=== PATIENT | male | born 1970 | race Caucasian/White ===

== ENCOUNTER 2016-12-28 13:25 | Emergency (ER) | payer BC, MEDICARE ==
[2016-12-28 13:37] VITALS: BP 113/65; PULSE 94; RESP 20; TEMP 99
--- NOTE | 2016-12-28 14:01 | ED ---
Extremity Problem HPI - General Chief complaint: Extremity Problem,Nontraumatic Stated complaint: Shoulder Pain Time Seen by Provider: 12/28/16 13:38 Source: patient Mode of arrival: ambulatory Limitations: no limitations - History of Present Illness Initial comments: 46-year-old right-handed male patient presents to emergency department today for complaints of left shoulder pain. Patient states that he woke this morning was unable to move his left arm without significant pain to her shoulder. Patient states that 2 days ago he did have a fall, but denies any injury from the fall. He states yesterday he did carry a heavy air conditioner. Patient denies any head, neck, or back pain. Patient denies any numbness or tingling to the arm. Patient denies any fever, chills, chest pain, back pain, shortness of breath, abdominal pain, nausea, vomiting, dizziness, or weakness. Patient denies any previous injury to the shoulder. - Related Data Home Medications Medication Instructions Recorded Confirmed Morphine Sulfate [Morphine Sulfate 200 mg PO QID PRN 10/22/14 10/24/14 ER] Omeprazole [PriLOSEC] 40 mg PO AC-BID 10/22/14 10/24/14 Simvastatin [Zocor] 40 mg PO HS 10/22/14 10/24/14 traZODone HCL [Desyrel] 400 mg PO HS 10/22/14 10/24/14 Albuterol Inhaler [Ventolin Hfa 1 - 2 puff INHALATION Q6HR PRN 10/24/14 10/24/14 Inhaler] Warfarin [Coumadin] 7.5 mg PO ONCE 10/24/14 10/24/14 Previous Rx's Medication Instructions Recorded Aspirin 325 mg PO BID 30 Days 10/27/14 Diazepam [Valium] 5 mg PO Q8H PRN #30 tab 10/27/14 Morphine Sulfate [Morphine Sulfate 200 mg PO QID PRN #10 tablet.er 10/27/14 ER] Sennosides-Docusate Sodium 2 each PO DAILY #30 tablet 10/27/14 [Senokot-S] Ondansetron Odt [Zofran ODT] 4 mg PO Q8HR PRN #20 tab 02/10/15 Ibuprofen [Motrin] 600 mg PO Q6HR PRN #21 tab 12/28/16 Allergies Allergy/AdvReac Type Severity Reaction Status Date / Time No Known Allergies Allergy Verified 12/28/16 13:38 Review of Systems ROS Statement: Those systems with pertinent positive or pertinent negative responses have been documented in the HPI. ROS Other: All systems not noted in ROS Statement are negative. Past Medical History Past Medical History: GERD/Reflux, Hearing Disorder / Deafness, Hyperlipidemia, Sleep Apnea/CPAP/BIPAP Additional Past Medical History / Comment(s): left femur fracture, PTSD, chronic pain History of Any Multi-Drug Resistant Organisms: None Reported Past Surgical History: Back Surgery, Orthopedic Surgery Additional Past Surgical History / Comment(s): cranial fracture, right ankle, right hand. Past Anesthesia/Blood Transfusion Reactions: No Reported Reaction Additional Past Anesthesia/Blood Transfusion Reaction / Comment(s): CLAUSTROPHIC Past Psychological History: PTSD Smoking Status: Current every day smoker Past Alcohol Use History: None Reported Past Drug Use History: None Reported - Past Family History Father Family Medical History: Cancer Mother Family Medical History: Cancer General Exam Limitations: no limitations General appearance: alert, in no apparent distress Head exam: Present: atraumatic, normocephalic, normal inspection Eye exam: Present: normal appearance, PERRL, EOMI. Absent: scleral icterus, conjunctival injection, periorbital swelling ENT exam: Present: normal exam, mucous membranes moist Neck exam: Present: normal inspection, full ROM. Absent: tenderness, meningismus, lymphadenopathy Respiratory exam: Present: normal lung sounds bilaterally. Absent: respiratory distress, wheezes, rales, rhonchi, stridor Cardiovascular Exam: Present: regular rate, normal rhythm, normal heart sounds. Absent: systolic murmur, diastolic murmur, rubs, gallop, clicks Extremities exam: Present: normal inspection, full ROM (All active range of motion present, however patient reports significant pain with both active and passive abduction, forward flexion, and hyperextension, as well as external rotation of the shoulder.), normal capillary refill, other (Radial pulse intact , skin pink warm and dry. No deformity or crepitus noted. Left shoulder without obvious asymmetry or deformity when compared to the right shoulder. No erythema warmth or swelling. ). Absent: tenderness Back exam: Present: normal inspection Neurological exam: Present: alert, oriented X3, CN II-XII intact Expanded Motor strength exam: RUE: 5, LUE: 5 Psychiatric exam: Present: normal affect, normal mood Skin exam: Present: warm, dry, intact, normal color. Absent: rash Course Vital Signs 12/28/16 13:35 Temperature 99.0 F Pulse Rate 94 Respiratory 20 Rate Blood Pressure 113/65 O2 Sat by Pulse 98 Oximetry Medical Decision Making - Medical Decision Making 46-year-old male patient presented for evaluation of left shoulder pain. X-ray was obtained and did reveal possible calcific tendinitis in the left shoulder. No fracture or dislocation noted. Patient will be given prescription for anti- inflammatory pain medications with instructions to take one tablet 3 times daily for the next 7 days. Patient started if his symptoms don't start to improve with gentle exercises and anti-inflammatories he is to follow-up with his primary care physician for further evaluation. Patient started to return here for any new, worsening, or concerning symptoms. Patient verbalizes understanding and agrees with this plan. - Radiology Data Radiology results: report reviewed, image reviewed 3 views of the left shoulder reveals calcification as well as assessment calcific tendinitis on the rotator cuff tendon. Alignment, bone mineralization , joint spaces are maintained. Left lung apex is visualized is normal. Impression by Dr. Lee reveals no acute fracture dislocation. Findings suggest calcific tendinitis. Disposition Clinical Impression: Shoulder pain, Tendonitis Disposition: HOME SELF-CARE Condition: Good Instructions: Shoulder Pain (ED) Additional Instructions: Take ibuprofen 3 times daily, 1 tablet after breakfast, one tablet after lunch, one tablet after dinner. Gentle stretching exercises of the shoulder to improve range of motion. If symptoms aren't improving over the next 1-2 days follow-up with primary care physician for recheck. Return for any new, worsening, or concerning symptoms. Prescriptions: Ibuprofen [Motrin] 600 mg PO Q6HR PRN #21 tab PRN Reason: Pain Referrals: None,Stated [Primary Care Provider] - 1-2 days Time of Disposition: 14:18
--- NOTE | 2016-12-28 14:09 | XR ---
Left shoulder HISTORY: Trauma and pain 3 views of the left shoulder Calcification is present suggesting calcific tendinitis along the rotator cuff tendon. Alignment, bon e mineralization, joint spaces are maintained. Left lung apex as visualized is normal. IMPRESSION: No acute fracture or dislocation. Findings suggest calcific tendinitis. Consider MRI or C T for additional evaluation.
== END 2016-12-28 14:23 | disposition home or self-care (01) ==
LOC: EC 13:25
DX: M75.32 Calcific tendinitis of left shoulder (principal); K21.9 Gastro-esophageal reflux disease without esophagitis; E78.5 Hyperlipidemia, unspecified; G47.30 Sleep apnea, unspecified; F43.10 Post-traumatic stress disorder, unspecified; F17.200 Nicotine dependence, unspecified, uncomplicated; Z91.81 History of falling; Z79.01 Long term (current) use of anticoagulants; Z79.899 Other long term (current) drug therapy
CPT/HCPCS: 99283

== ENCOUNTER → 2017-05-23 | Outpatient (CLI) | payer BC, MEDICARE ==
--- NOTE | 2017-05-23 15:36 | NM ---
EXAMINATION TYPE: NM bone scan whole body DATE OF EXAM: 05/23/2017 COMPARISON: 10/24/2014 HISTORY: Pain in left hip Delayed whole-body scanning was performed following the injection of 27 mCi Tc 99m MDP. Images were acquired 3 hours post injection. Spot imaging is performed over the pelvis. FINDINGS: There is a therapeutic defect within the left hip compatible with the patient's left hip prosthesis. Suspicious uptake adjacent to left hip is not identified. There is some small focal area of increased radiotracer at the medial inferior left pubic ramus. On t he right anterior oblique view there is some mild increased uptake on the lesser trochanter of the le ft hip. These areas are not identified on the whole body imaging. Suspicious uptake around the hip prosthesis to suggest loosening or infection is not identified. Incidental note is made of uptake within the left mandible which could be related to periodontal dise ase. IMPRESSION: 1. Couple of punctate nonspecific findings at the medial left pubic ramus and left lesser trochanter on spot imaging. These are nonspecific. 2. Suspicious changes to suggest loosening or infection are not identified on the whole body bone sca n imaging.
== END | disposition home or self-care (01) ==
LOC: RADNMMAIN 11:05
PROVIDERS: ATTEND Orthopaedic Surgery
DX: R94.8 Abnormal results of function studies of other organs and systems (principal); Z96.642 Presence of left artificial hip joint
CPT/HCPCS: 78306; A9503

== ENCOUNTER → 2018-02-20 | Outpatient (CLI) | payer BC, MEDICARE ==
[2018-02-21 13:34] LABS: Alt. alternata IgE Class CLASS 0; Alternaria alternata IgE <0.35 kU/L (<0.35); Asperg. fumagatus IgE <0.35 kU/L (<0.35); Asperg. fumagatus IgE Class CLASS 0; Aureo. pullulans IgE <0.35 kU/L (<0.35); Birch(Com.Silvr) IgE <0.35 kU/L (<0.35); Birch(Com.Silvr) IgE Class CLASS 0; Candida albicans IgE Class CLASS I; Cat Epith & Dander IgE 0.36 kU/L (<0.35); Cat Epith & Dander IgE Class CLASS I; Clad herbarum IgE <0.35 kU/L (<0.35); Cockroach IgE 0.91 kU/L (<0.35); Com. Pigweed IgE <0.35 kU/L (<0.35); Com. Pigweed IgE Class CLASS 0; Cottonwood IgE <0.35 kU/L (<0.35); Dermato. Pteronyssinus IgE 0.92 kU/L (<0.35); Dermato. farinae IgE 1.04 kU/L (<0.35); Dermato. farinae IgE Class CLASS II; Dog Dander IgE <0.35 kU/L (<0.35); English Plantain IgE Class CLASS 0; Epicoccum purpurascens Class CLASS 0; Epicoccum purpurascens IgE <0.35 kU/L (<0.35); Johnson Grass IgE Class CLASS I; Lamb's Quarter IgE <0.35 kU/L (<0.35); Lamb's Quarter IgE Class CLASS 0; Maple (Box Elder) IgE <0.35 kU/L (<0.35); Maple (Box Elder) IgE Class CLASS 0; Mucor racemosus IgE <0.35 kU/L (<0.35); Mucor racemosus IgE Class CLASS 0; Oak IgE <0.35 kU/L (<0.35); Rhizopus nigricans IgE <0.35 kU/L (<0.35); S.rostrata/Helminth Class CLASS 0; S.rostrata/Helminth IgE <0.35 kU/L (<0.35); Sycamore(Mpl.Lf) IgE <0.35 kU/L (<0.35); Timothy Grass IgE 1.68 kU/L (<0.35); Walnut Tree IgE <0.35 kU/L (<0.35); Walnut Tree IgE Class CLASS 0; White Ash IgE Class CLASS 0
== END ==
LOC: LABWHC1 13:52
PROVIDERS: ATTEND Otolaryngology
DX: J30.89 Other allergic rhinitis (principal)
CPT/HCPCS: 36415; 86001; 86003

== ENCOUNTER 2018-02-22 14:00 | Emergency (ER) | payer BC, MEDICARE ==
[2018-02-22] MEDS ORDERED: SODIUM CHLORIDE 0.9% 500 ML IV STA (14:41)
[2018-02-22] MEDS ORDERED: ONDANSETRON 4 MG/2 ML VIAL IVP STA (14:41)
[2018-02-22] MEDS ORDERED: KETOROLAC 30 MG/ML 1 ML VIAL IVP STA (14:41)
[2018-02-22] MEDS ORDERED: SODIUM CHLORIDE 0.9% 1,000 ML IV STA (14:41)
[2018-02-22] MEDS ORDERED: TAMSULOSIN 0.4 MG CAP.ER.24H PO STA (14:42)
--- NOTE | 2018-02-22 15:07 | ED ---
Back Pain HPI - General Chief Complaint: Back Pain/Injury Stated Complaint: kidney stones Time Seen by Provider: 02/22/18 14:25 Source: patient, RN notes reviewed Mode of arrival: ambulatory Limitations: no limitations - History of Present Illness Initial Comments: 48-year-old male presents emergency Department with a chief complaint of flank pain. Patient states is worse on the left greater than right. Patient states that he has a history kidney stone states he's passed multiple stones of last couple weeks. He states at this point he cannot tolerate the pain anymore. He has meant to some nausea denies any diarrhea constipation. He is not no current medications for pain. Denies fever, chills, chest pain or shortness breath. - Related Data Home Medications Medication Instructions Recorded Confirmed traZODone HCL [Desyrel] 400 mg PO HS 10/22/14 02/22/18 Albuterol Inhaler [Ventolin Hfa 1 puff INHALATION Q6HR PRN 10/24/14 02/22/18 Inhaler] Pantoprazole [Protonix] 40 mg PO DAILY 02/22/18 02/22/18 Previous Rx's Medication Instructions Recorded Cyclobenzaprine [Flexeril] 10 mg PO TID PRN #15 tab 02/22/18 Ibuprofen [Motrin] 600 mg PO Q8HR PRN #30 tab 02/22/18 Allergies Allergy/AdvReac Type Severity Reaction Status Date / Time No Known Allergies Allergy Verified 02/22/18 14:34 Review of Systems ROS Statement: Those systems with pertinent positive or pertinent negative responses have been documented in the HPI. ROS Other: All systems not noted in ROS Statement are negative. Past Medical History Past Medical History: GERD/Reflux, Hearing Disorder / Deafness, Hyperlipidemia, Sleep Apnea/CPAP/BIPAP Additional Past Medical History / Comment(s): left femur fracture, PTSD, chronic pain, kidney surgery History of Any Multi-Drug Resistant Organisms: None Reported Past Surgical History: Back Surgery, Joint Replacement, Orthopedic Surgery Additional Past Surgical History / Comment(s): cranial fracture, right ankle, right hand. Past Anesthesia/Blood Transfusion Reactions: No Reported Reaction Additional Past Anesthesia/Blood Transfusion Reaction / Comment(s): CLAUSTROPHIC Past Psychological History: PTSD Smoking Status: Former smoker Past Alcohol Use History: None Reported Past Drug Use History: Marijuana - Past Family History Father Family Medical History: Cancer Mother Family Medical History: Cancer General Exam Limitations: no limitations General appearance: alert, in no apparent distress Neck exam: Present: normal inspection, full ROM. Absent: tenderness, meningismus, lymphadenopathy Respiratory exam: Present: normal lung sounds bilaterally. Absent: respiratory distress, wheezes, rales, rhonchi, stridor Cardiovascular Exam: Present: regular rate, normal rhythm, normal heart sounds. Absent: systolic murmur, diastolic murmur, rubs, gallop, clicks GI/Abdominal exam: Present: soft, tenderness (Mild lower), normal bowel sounds. Absent: distended, guarding, rebound, rigid Back exam: Present: CVA tenderness (L). Absent: CVA tenderness (R) Skin exam: Present: warm, dry, intact, normal color. Absent: rash Course Vital Signs 02/22/18 02/22/18 14:08 18:14 Temperature 98.0 F 98 F Pulse Rate 100 97 Respiratory 20 16 Rate Blood Pressure 120/83 129/80 O2 Sat by Pulse 98 96 Oximetry Medical Decision Making - Medical Decision Making 48-year-old male presented from for flank pain. Patient does state that he had a history kidney stones and felt some ago he had no hematuria. CT was ordered and shows no acute abnormality. Patient one this more likely muscle skeletal pain. Patient is improved after IV medications in the emergency department. Patient we discharged follow-up PCP. - Lab Data Result diagrams: 02/22/18 15:20 02/22/18 15:20 Lab Results 02/22/18 02/22/18 02/22/18 Range/Units 15:20 15:20 16:49 WBC 6.9 (3.8-10.6) k/uL RBC 5.26 (4.30-5.90) m/uL Hgb 16.1 (13.0-17.5) gm/dL Hct 49.0 (39.0-53.0) % MCV 93.0 (80.0-100.0) fL MCH 30.6 (25.0-35.0) pg MCHC 32.9 (31.0-37.0) g/dL RDW 13.0 (11.5-15.5) % Plt Count 227 (150-450) k/uL Neutrophils % 63 % Lymphocytes % 26 % Monocytes % 8 % Eosinophils % 2 % Basophils % 1 % Neutrophils # 4.3 (1.3-7.7) k/uL Lymphocytes # 1.8 (1.0-4.8) k/uL Monocytes # 0.5 (0-1.0) k/uL Eosinophils # 0.1 (0-0.7) k/uL Basophils # 0.0 (0-0.2) k/uL Sodium 141 (137-145) mmol/L Potassium 4.4 (3.5-5.1) mmol/L Chloride 107 (98-107) mmol/L Carbon Dioxide 26 (22-30) mmol/L Anion Gap 8 mmol/L BUN 21 H (9-20) mg/dL Creatinine 0.93 (0.66-1.25) mg/dL Est GFR (CKD-EPI)AfAm >90 (>60 ml/min/1.73 sqM) Est GFR (CKD-EPI)NonAf >90 (>60 ml/min/1.73 sqM) Glucose 89 (74-99) mg/dL Calcium 9.6 (8.4-10.2) mg/dL Total Bilirubin 0.5 (0.2-1.3) mg/dL AST 26 (17-59) U/L ALT 45 (21-72) U/L Alkaline Phosphatase 96 (38-126) U/L Total Protein 6.7 (6.3-8.2) g/dL Albumin 4.2 (3.5-5.0) g/dL Amylase 68 (30-110) U/L Lipase 74 (23-300) U/L Urine Color Yellow Urine Appearance Clear (Clear) Urine pH 6.5 (5.0-8.0) Ur Specific [place] 1.021 (1.001-1.035) Urine Protein Trace H (Negative) Urine Glucose (UA) Negative (Negative) Urine Ketones Negative (Negative) Urine Blood Negative (Negative) Urine Nitrite Negative (Negative) Urine Bilirubin Negative (Negative) Urine Urobilinogen <2.0 (<2.0) mg/dL Ur Leukocyte Esterase Negative (Negative) Disposition Clinical Impression: Flank pain, Back pain Disposition: HOME SELF-CARE Condition: Stable Instructions: Back Pain (ED) Additional Instructions: Please return to the Emergency Department if symptoms worsen or any other concerns. Prescriptions: Cyclobenzaprine [Flexeril] 10 mg PO TID PRN #15 tab PRN Reason: Muscle Spasm Ibuprofen [Motrin] 600 mg PO Q8HR PRN #30 tab PRN Reason: Pain Is patient prescribed a controlled substance at d/c from ED?: No Referrals: Tunde Millan DO [Doctor of Osteopathic Medicine] - 1-2 days Time of Disposition: 18:37
[2018-02-22 15:46] LABS: Basophils % (A) 1 %; Eosinophils # (A) 0.1 k/uL (0-0.7); Eosinophils % (A) 2 %; HGB 16.1 gm/dL (13.0-17.5); Lymphocytes # (A) 1.8 k/uL (1.0-4.8); Lymphocytes % (A) 26 %; MCH 30.6 pg (25.0-35.0); MCHC 32.9 g/dL (31.0-37.0); Mean Platelet Volume 6.2; Monocytes # (A) 0.5 k/uL (0-1.0); Monocytes % (A) 8 %; Neutrophils # (A) 4.3 k/uL (1.3-7.7); Neutrophils % (A) 63 %; Platelet Count 227 k/uL (150-450); RBC 5.26 m/uL (4.30-5.90); WBC 6.9 k/uL (3.8-10.6)
[2018-02-22] MEDS ORDERED: MORPHINE SULFATE 4 MG/ML SYRINGE IVP STA (15:51)
[2018-02-22 15:55] LABS: ALT 45 U/L (21-72); AST 26 U/L (17-59); Albumin 4.2 g/dL (3.5-5.0); Alkaline Phosphatase 96 U/L (38-126); Amylase 68 U/L (30-110); Anion Gap 8 mmol/L; Blood Urea Nitrogen 21 mg/dL (9-20); Calcium 9.6 mg/dL (8.4-10.2); Carbon Dioxide 26 mmol/L (22-30); Chloride 107 mmol/L (98-107); Glucose 89 mg/dL (74-99); Lipase 74 U/L (23-300); Potassium 4.4 mmol/L (3.5-5.1); Sodium 141 mmol/L (137-145); Total Bilirubin 0.5 mg/dL (0.2-1.3); Total Protein 6.7 g/dL (6.3-8.2)
--- NOTE | 2018-02-22 16:09 | XR ---
EXAMINATION TYPE: XR KUB DATE OF EXAM: 02/22/2018 COMPARISON: 04/30/2013 INDICATION: Abdomen pain bilateral flank pain TECHNIQUE: Single view abdomen upright view FINDINGS: Nonspecific bowel gas pattern is present. Small bowel loops as well as colon containing air. No suspi cious differential air-fluid levels are present. No free air is evident. Psoas margins are normal. No organomegaly is present. IMPRESSION: 1. Nonspecific abdomen.
[2018-02-22 17:11] LABS: Appearance,Urine Clear (Clear); Bilirubin,Urine Negative (Negative); Blood,Urine Negative (Negative); Color,Urine Yellow; Glucose,Urine (UA) Negative (Negative); Ketones,Urine Negative (Negative); Leukocyte Esterase,Urine Negative (Negative); Nitrite,Urine Negative (Negative); PH, Urine 6.5 (5.0-8.0); Protein,Urine Trace (Negative); Specific Gravity,Urine 1.021 (1.001-1.035); Urobilinogen,Urine <2.0 mg/dL (<2.0)
--- NOTE | 2018-02-22 18:18 | CT ---
EXAMINATION TYPE: CT abdomen pelvis wo con DATE OF EXAM: 02/22/2018 COMPARISON: 03/21/2012 HISTORY: Bilateral flank pain. CT DLP: 1073 mGycm Automated exposure control for dose reduction was used. TECHNIQUE: Helical acquisition of images was performed from the lung bases through the pelvis. FINDINGS: Lung bases are clear. There is no pleural effusion. There is no pericardial effusion. Liver spleen pancreas gallbladder appear normal. Bile ducts are not dilated. There is no adrenal mass . Kidneys have normal size and contour. There is no hydronephrosis. There are 3 mm calculi in the ant erior right kidney. There is no retroperitoneal adenopathy. There is no ascites. The appendix appears normal. Bladder distends smoothly. There is left hip prosthesis. I see no intestinal wall thickening . There are no dilated loops. There is no mesenteric adenopathy or edema. There is no evidence of pneumoperitoneum. There is no inguinal adenopathy or hernia. The ureters are not dilated. Lumbar spine is intact. There is small umbilical hernia that contains fat. Abdominal sof t tissues are unremarkable. IMPRESSION: SMALL RIGHT RENAL CALCULI. NO EVIDENCE OF RENAL OBSTRUCTION. NO HYDRONEPHROSIS. NORMAL APPENDIX. THER E IS CLEARING OF SOME OF THE RENAL CALCULI COMPARED TO OLD EXAM.
[2018-02-22 18:19] VITALS: BP 129/80; PULSE 97; RESP 16; TEMP 98
[2018-02-22] MEDS ORDERED: ORPHENADRINE 30 MG/ML 2 ML VIAL IVP STA (18:35)
[2018-02-22] MEDS ORDERED: ACET/COD 300 MG/30 MG STARTER PACK 6 TAB BTL PO STA (18:37)
== END 2018-02-22 18:57 | disposition home or self-care (01) ==
LOC: EC 14:00
DX: R10.9 Unspecified abdominal pain (principal); M54.9 Dorsalgia, unspecified; K21.9 Gastro-esophageal reflux disease without esophagitis; G47.30 Sleep apnea, unspecified; Z99.89 Dependence on other enabling machines and devices; Z87.442 Personal history of urinary calculi; Z87.891 Personal history of nicotine dependence; F43.10 Post-traumatic stress disorder, unspecified; Z79.899 Other long term (current) drug therapy
CPT/HCPCS: 36415; 80053; 82150; 83690; 85025; 81003; 87086; 74018; 74176; 99284; 96374; 96375 ×3; 96361; J2270; J2360; J2405; J1885

== ENCOUNTER 2018-05-22 21:43 | Emergency (ER) | payer BC, MEDICARE ==
[2018-05-22] MEDS ORDERED: SODIUM CHLORIDE 0.9% 1,000 ML IV STA (21:55)
[2018-05-22] MEDS ORDERED: ASPIRIN 81 MG PO STA (21:55)
[2018-05-22 22:14] LABS: Basophils % (A) 1 %; Eosinophils # (A) 0.2 k/uL (0-0.7); Eosinophils % (A) 3 %; HCT 45.7 % (39.0-53.0); HGB 14.8 gm/dL (13.0-17.5); Lymphocytes # (A) 1.9 k/uL (1.0-4.8); Lymphocytes % (A) 26 %; MCH 30.1 pg (25.0-35.0); MCHC 32.3 g/dL (31.0-37.0); Mean Platelet Volume 6.6; Monocytes # (A) 0.5 k/uL (0-1.0); Monocytes % (A) 7 %; Neutrophils # (A) 4.3 k/uL (1.3-7.7); Neutrophils % (A) 61 %; Platelet Count 208 k/uL (150-450); RBC 4.92 m/uL (4.30-5.90); RDW 13.4 % (11.5-15.5); WBC 7.1 k/uL (3.8-10.6)
[2018-05-22 22:27] LABS: ALT 59 U/L (21-72); AST 47 U/L (17-59); Albumin 4.3 g/dL (3.5-5.0); Alkaline Phosphatase 123 U/L (38-126); Anion Gap 7 mmol/L; Blood Urea Nitrogen 23 mg/dL (9-20); Calcium 9.6 mg/dL (8.4-10.2); Carbon Dioxide 23 mmol/L (22-30); Chloride 109 mmol/L (98-107); Glucose 104 mg/dL (74-99); Potassium 4.4 mmol/L (3.5-5.1); Sodium 139 mmol/L (137-145); Total Bilirubin 0.4 mg/dL (0.2-1.3); Total Protein 6.6 g/dL (6.3-8.2)
[2018-05-22 22:29] LABS: INR 0.9 (<1.2); Prothrombin Time 9.9 sec (9.0-12.0)
[2018-05-22 22:30] LABS: Partial Thromboplastin Time 25.1 sec (22.0-30.0)
--- NOTE | 2018-05-22 22:34 | XR ---
EXAMINATION TYPE: XR chest 2V DATE OF EXAM: 05/22/2018 COMPARISON: 03/05/2018 HISTORY: Chest pain TECHNIQUE: Frontal and lateral views of the chest are obtained. FINDINGS: Heart and mediastinum are normal. Lungs are clear. Diaphragm is normal. Bony thorax appear s normal. There are chest leads. There is cervical spine fusion surgery. IMPRESSION: No cardiopulmonary disease. No change.
--- NOTE | 2018-05-22 22:38 | ED ---
Chest Pain HPI - General Chief Complaint: Chest Pain Stated Complaint: Chest pressure Time Seen by Provider: 05/22/18 21:55 Source: patient Limitations: no limitations - History of Present Illness Initial Comments: Kip is a 48-year-old male with a past medical history of hyperlipidemia who presents to the emergency department today for evaluation of chest pain throughout the day today and painful edema of the bilateral upper and lower extremities. Patient reports he noted the symptoms upon waking this morning however he seemed to progressively worsen. Chest pain is worse with palpation or movement. It is not worse with exertion or relieved by rest. Not associated with any shortness of breath, diaphoresis or lightheadedness. Patient states that he has been doing some physical labor recently. He has been building a handicap ramp which is been physically strenuous. He thinks this may be contributing to the myalgias and chest pain. - Related Data Home Medications Medication Instructions Recorded Confirmed Albuterol Inhaler [Ventolin Hfa 1 puff INHALATION RT-Q6H PRN 10/24/14 05/22/18 Inhaler] Pantoprazole [Protonix] 40 mg PO DAILY 02/22/18 05/22/18 Aspirin 325 mg PO DAILY 05/22/18 05/22/18 Cetirizine HCl [Zyrtec] 10 mg PO DAILY 05/22/18 05/22/18 Fluticasone/Vilanterol [Breo 1 puff INHALATION RT-DAILY 05/22/18 05/22/18 Ellipta 200-25 Mcg INH] Ipratropium/Albuterol Sulfate 1 - 2 puff INHALATION RT-QID 05/22/18 05/22/18 [Combivent Respimat Inhaler] Montelukast [Singulair] 10 mg PO DAILY 05/22/18 05/22/18 traZODone HCL 400 mg PO HS 05/22/18 05/22/18 Previous Rx's Medication Instructions Recorded Cyclobenzaprine [Flexeril] 10 mg PO TID PRN #15 tab 02/22/18 Ibuprofen [Motrin] 600 mg PO Q8HR PRN #30 tab 02/22/18 Allergies Allergy/AdvReac Type Severity Reaction Status Date / Time milk Allergy Unknown Verified 05/22/18 22:32 Review of Systems ROS Statement: Those systems with pertinent positive or pertinent negative responses have been documented in the HPI. ROS Other: All systems not noted in ROS Statement are negative. EKG Findings - EKG Comments: EKG Findings:: EKG obtained at 9:51 PM, rate is 67, rhythm is sinus, normal axis , normal intervals, AR 154, QRS 82, QTc 41. There are no acute ST elevations or depressions no evidence of acute ischemia or infarction. Past Medical History Past Medical History: GERD/Reflux, Hearing Disorder / Deafness, Hyperlipidemia, Sleep Apnea/CPAP/BIPAP Additional Past Medical History / Comment(s): left femur fracture, PTSD, chronic pain, kidney surgery History of Any Multi-Drug Resistant Organisms: None Reported Past Surgical History: Back Surgery, Joint Replacement, Orthopedic Surgery Additional Past Surgical History / Comment(s): cranial fracture, right ankle, right hand. Past Anesthesia/Blood Transfusion Reactions: No Reported Reaction Additional Past Anesthesia/Blood Transfusion Reaction / Comment(s): CLAUSTROPHIC Past Psychological History: PTSD Smoking Status: Former smoker Past Alcohol Use History: Occasional Past Drug Use History: Marijuana - Past Family History Father Family Medical History: Cancer Mother Family Medical History: Cancer General Exam Limitations: no limitations Course Vital Signs 05/22/18 21:50 Temperature 98.7 F Pulse Rate 76 Respiratory 20 Rate Blood Pressure 140/113 O2 Sat by Pulse 98 Oximetry Chest Pain [facility] Patient was seen and evaluated immediately upon arrival in the emergency department Patient with recent significant increase in his physical activity level now presenting with diffuse myalgias, swelling of the bilateral upper and lower extremities as well as chest pain which is worse with palpation or movement Patient heart score is 2 for age and hyperlipidemia as well as obesity History of present illness is not concerning for cardiac etiology of chest pain however I will obtain a troponin EKG and chest x-ray EKG is nonischemic Labs and imaging were ordered and resulted, troponin was negative, CK was mildly elevated consistent with patient's recent history of increased physical exertion Chest x-ray had no acute findings Toradol was ordered for patient's discomfort Results were discussed with the patient who is agreeable with the plan for discharge home with outpatient follow-up, all questions pertaining to care were answered best my ability, return parameters were discussed on patient was discharged home in stable condition. Disposition Clinical Impression: Atypical chest pain Disposition: HOME SELF-CARE Condition: Good Instructions: Chest Pain (ED), Costochondritis (ED) Is patient prescribed a controlled substance at d/c from ED?: No Referrals: [facility],Clinic [Primary Care Provider] - 1-2 days Time of Disposition: 23:53
[2018-05-22 22:40] LABS: Creatine Kinase 501 U/L (55-170)
[2018-05-22 22:53] LABS: Creatine Kinase MB 3.1 ng/mL (0.0-2.4); Troponin I <0.012 ng/mL (0.000-0.034)
[2018-05-22] MEDS ORDERED: KETOROLAC 30 MG/ML 1 ML VIAL IVP ONE (23:03)
[2018-05-23 00:08] VITALS: BP 132/89; PULSE 65; RESP 18; TEMP 98.2
--- NOTE | 2018-05-25 02:46 | CDI ---
Documentation Clarification OP Dear Dr. Kota Lomeli Please do addendum to ED report for missing Physical examination. Thank you, Sheng Mccabe Rn Cardiac Cath If you have any questions, please contact Manager Android at [phone] [facility]
== END 2018-05-23 00:24 | disposition home or self-care (01) ==
LOC: SUPCPDRO 21:43 → EC 21:43
DX: R07.89 Other chest pain (principal); R60.0 Localized edema; M79.10 Myalgia, unspecified site; E78.5 Hyperlipidemia, unspecified; K21.9 Gastro-esophageal reflux disease without esophagitis; F43.10 Post-traumatic stress disorder, unspecified; G47.30 Sleep apnea, unspecified; Z99.89 Dependence on other enabling machines and devices; E66.9 Obesity, unspecified; Z68.30 Body mass index [BMI] 30.0-30.9, adult; Z96.89 Presence of other specified functional implants; Z87.891 Personal history of nicotine dependence; Z79.82 Long term (current) use of aspirin; Z79.51 Long term (current) use of inhaled steroids; Z79.899 Other long term (current) drug therapy; Z91.011 Allergy to milk products
CPT/HCPCS: 99285; 96374; 96361 ×2; 36415; 93005; 83880; 80053; 82550; 82553; 83735; 84484; 85025; 85610; 85730; 71046; J1885

== ENCOUNTER 2019-01-03 04:51 | Emergency (ER) | payer BC, MEDICARE ==
[2019-01-03] MEDS ORDERED: SODIUM CHLORIDE 0.9% 1,000 ML IV STA (05:13)
[2019-01-03 05:55] LABS: Appearance,Urine Clear (Clear); Bilirubin,Urine Negative (Negative); Blood,Urine Large (Negative); Color,Urine Light Red; Glucose,Urine (UA) Negative (Negative); Ketones,Urine Negative (Negative); Leukocyte Esterase,Urine Negative (Negative); Mucus,Urine Moderate /hpf; Nitrite,Urine Negative (Negative); Protein,Urine 1+ (Negative); RBC,Urine >182 /hpf (0-5); Specific Gravity,Urine 1.027 (1.001-1.035); Urobilinogen,Urine <2.0 mg/dL (<2.0)
[2019-01-03] MEDS ORDERED: KETOROLAC 30 MG/ML 1 ML VIAL IVP STA (05:57)
[2019-01-03] MEDS ORDERED: ONDANSETRON 4 MG/2 ML VIAL IVP STA (06:01)
--- NOTE | 2019-01-03 06:02 | ED ---
General Adult HPI - General Chief complaint: Abdominal Pain Stated complaint: Kidney Stone Time Seen by Provider: 01/03/19 05:13 Source: patient Mode of arrival: ambulatory Limitations: no limitations - History of Present Illness Initial comments: Dictation was produced using [employer] dictation software. please excuse any grammatical, word or spelling errors. Chief Complaint: Patient is a 48-year-old male past medical history of nephrolithiasis presents with left flank pain. History of Present Illness: 48-year-old male with past medical history of nephrolithiasis. He presents today with approximately one week of left flank pain. Patient states that he decided come to the emergency department because his symptoms are getting worse. She has a history of kidney stones. He established care with urologist Dr. Johnson. Patient states he's never needed procedure for kidney stones in the past. Patient complaining of some nausea. Denies any abdominal pain or diarrhea. Does complain of some mild burning with urination. States the pain is colicky in nature. The ROS documented in this emergency department record has been reviewed and confirmed by me. Those systems with pertinent positive or negative responses have been documented in the HPI. All other systems are other negative and/or noncontributory. PHYSICAL EXAM: General Impression: Alert and oriented x3, acute distress secondary to pain HEENT: Normocephalic atraumatic, extra-ocular movements intact, pupils equal and reactive to light bilaterally, mucous membranes moist. Cardiovascular: Heart regular rate and rhythm, S1&S2 audible, no murmurs, rubs or gallops Chest: Lungs clear to auscultation bilaterally, no rhonchi, no wheeze, no rales Abdomen: Bowel sounds present, abdomen soft, non-tender, non-distended, no organomegaly Musculoskeletal: Pulses present and equal in all extremities, no peripheral edema Motor: no focal deficits noted Neurological: CN II-XII grossly intact, no focal motor or sensory deficits noted Skin: Intact with no visualized rashes Psych: Normal affect and mood ED course: 48-year-old male presents with clinical presentation concerning for nephrolithiasis. He states his symptoms are exactly like his kidney stone pain. Vital signs upon arrival shows heart rate of 127, rest vital signs within acceptable limits. Laboratory evaluation obtained. Urinalysis shows 1+ protein, greater than 182 red blood cells. Given the patient has history of kidney stones in his symptoms are similar to what he's had the past CT was was skipped and ultrasounds of the kidney ureter and bladder was obtained. There is no findings of obstruction to the left kidney. There is however findings on the right renal calculus. Delia sullivan states his pain is now migrating down to his left groin area. Patient given intravenous fluids, analgesia. Patient's symptoms are improved. Patient told to follow-up with his urologist. Given prescription for Flomax, antiemetics and analgesics. - Related Data Home Medications Medication Instructions Recorded Confirmed Albuterol Inhaler [Ventolin Hfa 1 puff INHALATION RT-Q6H PRN 10/24/14 05/22/18 Inhaler] Pantoprazole [Protonix] 40 mg PO DAILY 02/22/18 05/22/18 Aspirin 325 mg PO DAILY 05/22/18 05/22/18 Cetirizine HCl [Zyrtec] 10 mg PO DAILY 05/22/18 05/22/18 Fluticasone/Vilanterol [Breo 1 puff INHALATION RT-DAILY 05/22/18 05/22/18 Ellipta 200-25 Mcg INH] Ipratropium/Albuterol Sulfate 1 - 2 puff INHALATION RT-QID 05/22/18 05/22/18 [Combivent Respimat Inhaler] Montelukast [Singulair] 10 mg PO DAILY 05/22/18 05/22/18 traZODone HCL 400 mg PO HS 05/22/18 05/22/18 Previous Rx's Medication Instructions Recorded Cyclobenzaprine [Flexeril] 10 mg PO TID PRN #15 tab 02/22/18 Ibuprofen [Motrin] 600 mg PO Q8HR PRN #30 tab 02/22/18 HYDROcodone/APAP 5-325MG [[place] 1 tab PO Q6HR PRN 3 Days #12 tab 01/03/19 5-325] Ondansetron Odt [Zofran Odt] 4 mg PO Q8HR PRN #12 tab 01/03/19 Tamsulosin [Flomax] 0.4 mg PO DAILY 5 Days #5 cap 01/03/19 Allergies Allergy/AdvReac Type Severity Reaction Status Date / Time milk Allergy Unknown Verified 05/22/18 22:32 Review of Systems ROS Statement: Those systems with pertinent positive or pertinent negative responses have been documented in the HPI. ROS Other: All systems not noted in ROS Statement are negative. Past Medical History Past Medical History: GERD/Reflux, Hearing Disorder / Deafness, Hyperlipidemia, Sleep Apnea/CPAP/BIPAP Additional Past Medical History / Comment(s): left femur fracture, PTSD, chronic pain, kidney surgery History of Any Multi-Drug Resistant Organisms: None Reported Past Surgical History: Back Surgery, Joint Replacement, Orthopedic Surgery Additional Past Surgical History / Comment(s): cranial fracture, right ankle, right hand. Past Anesthesia/Blood Transfusion Reactions: No Reported Reaction Additional Past Anesthesia/Blood Transfusion Reaction / Comment(s): CLAUSTROPHIC Past Psychological History: PTSD Smoking Status: Former smoker Past Alcohol Use History: Occasional Past Drug Use History: Marijuana - Past Family History Father Family Medical History: Cancer Mother Family Medical History: Cancer General Exam Limitations: no limitations Course Vital Signs 01/03/19 01/03/19 05:04 06:52 Temperature 97.5 F L 98 F Pulse Rate 127 H 91 Respiratory 20 18 Rate Blood Pressure 129/97 110/67 O2 Sat by Pulse 94 L 96 Oximetry Medical Decision Making - Lab Data Result diagrams: 01/03/19 05:25 Lab Results 01/03/19 01/03/19 Range/Units 05:25 05:42 WBC 9.8 (3.8-10.6) k/uL RBC 5.07 (4.30-5.90) m/uL Hgb 15.7 (13.0-17.5) gm/dL Hct 46.3 (39.0-53.0) % MCV 91.3 (80.0-100.0) fL MCH 31.0 (25.0-35.0) pg MCHC 33.9 (31.0-37.0) g/dL RDW 13.0 (11.5-15.5) % Plt Count 241 (150-450) k/uL Neutrophils % 65 % Lymphocytes % 25 % Monocytes % 7 % Eosinophils % 1 % Basophils % 0 % Neutrophils # 6.4 (1.3-7.7) k/uL Lymphocytes # 2.4 (1.0-4.8) k/uL Monocytes # 0.7 (0-1.0) k/uL Eosinophils # 0.1 (0-0.7) k/uL Basophils # 0.0 (0-0.2) k/uL Urine Color Light Red Urine Appearance Clear (Clear) Urine pH 6.0 (5.0-8.0) Ur Specific [place] 1.027 (1.001-1.035) Urine Protein 1+ H (Negative) Urine Glucose (UA) Negative (Negative) Urine Ketones Negative (Negative) Urine Blood Large H (Negative) Urine Nitrite Negative (Negative) Urine Bilirubin Negative (Negative) Urine Urobilinogen <2.0 (<2.0) mg/dL Ur Leukocyte Esterase Negative (Negative) Urine RBC >182 H (0-5) /hpf Urine Mucus Moderate H (None) /hpf Disposition Clinical Impression: Flank pain Condition: Good Instructions (If sedation given, give patient instructions): Kidney Stones (ED) Prescriptions: Tamsulosin [Flomax] 0.4 mg PO DAILY 5 Days #5 cap HYDROcodone/APAP 5-325MG [[place] 5-325] 1 tab PO Q6HR PRN 3 Days #12 tab PRN Reason: Severe Pain Ondansetron Odt [Zofran Odt] 4 mg PO Q8HR PRN #12 tab PRN Reason: Nausea Is patient prescribed a controlled substance at d/c from ED?: Yes If prescribed controlled substance>3 days was MAPS reviewed?: Prescribed <3 Days Referrals: [facility],Clinic [Primary Care Provider] - 1-2 days
[2019-01-03] MEDS ORDERED: MORPHINE SULFATE 4 MG/ML SYRINGE IV STA (06:45)
--- NOTE | 2019-01-03 06:45 | US ---
EXAMINATION TYPE: US kidneys/renal and bladder DATE OF EXAM: 01/03/2019 COMPARISON: CT abdomen and pelvis February 22, 2018 CLINICAL HISTORY: Pain. Pain since Monday. Hx kidney stones. Hematuria per pt. Lithotripsy. EXAM MEASUREMENTS: Right Kidney: 11.3 x 5.8 x 5.1 cm Left Kidney: 11.4 x 5.4 x 6.3 cm *Limited imaging of left kidney due to patient's pain tolerance Right Kidney: Echogenic area with twinkle artifact seen right kidney measurin.7 x 1.1 x 0.7 cm. Left Kidney: No hydronephrosis or masses seen Bladder: not fully distended Bilateral Jets seen: no Technologist aguirre nonshadowing 7 mm focus right kidney could reflect renal calculus midpole level. B ladder is poorly distended and suboptimally evaluated. IMPRESSION: Probable 7 mm nonobstructing right renal calculus. No hydronephrosis is evident bilateral ly.
[2019-01-03 06:53] VITALS: BP 110/67; PULSE 91; RESP 18; TEMP 98
[2019-01-03 06:53] LABS: Basophils % (A) 0 %; Eosinophils # (A) 0.1 k/uL (0-0.7); Eosinophils % (A) 1 %; HCT 46.3 % (39.0-53.0); HGB 15.7 gm/dL (13.0-17.5); Lymphocytes # (A) 2.4 k/uL (1.0-4.8); Lymphocytes % (A) 25 %; MCHC 33.9 g/dL (31.0-37.0); MCV 91.3 fL (80.0-100.0); Mean Platelet Volume 6.6; Monocytes # (A) 0.7 k/uL (0-1.0); Monocytes % (A) 7 %; Neutrophils # (A) 6.4 k/uL (1.3-7.7); Neutrophils % (A) 65 %; Platelet Count 241 k/uL (150-450); RBC 5.07 m/uL (4.30-5.90); WBC 9.8 k/uL (3.8-10.6)
[2019-01-03 07:04] LABS: African American GFR (CKD) >90 (>60 ml/min/1.73 sqM); Anion Gap 11 mmol/L; Blood Urea Nitrogen 21 mg/dL (9-20); Calcium 9.5 mg/dL (8.4-10.2); Carbon Dioxide 26 mmol/L (22-30); Chloride 106 mmol/L (98-107); Glucose 116 mg/dL (74-99); Potassium 3.8 mmol/L (3.5-5.1); Sodium 143 mmol/L (137-145)
== END 2019-01-03 07:24 ==
LOC: EC 04:51
DX: N20.0 Calculus of kidney (principal); K21.9 Gastro-esophageal reflux disease without esophagitis; E78.5 Hyperlipidemia, unspecified; F43.10 Post-traumatic stress disorder, unspecified; G47.30 Sleep apnea, unspecified; Z99.89 Dependence on other enabling machines and devices; Z96.698 Presence of other orthopedic joint implants; Z87.891 Personal history of nicotine dependence; Z79.82 Long term (current) use of aspirin; Z79.51 Long term (current) use of inhaled steroids; Z79.899 Other long term (current) drug therapy; Z91.011 Allergy to milk products
CPT/HCPCS: 36415; 80048; 85025; 81001; 87086; 76770; 99284; 96374; 96375 ×2; 96361; J2270; J2405; J1885

== ENCOUNTER → 2019-12-06 | Outpatient (CLI) | payer BC, MEDICARE ==
--- NOTE | 2019-12-06 09:24 | CT ---
EXAMINATION TYPE: CT abdomen pelvis wo con DATE OF EXAM: 12/06/2019 COMPARISON: 02/22/2018 HISTORY: Bilateral flank pain CT DLP: 963 mGycm Automated exposure control for dose reduction was used. TECHNIQUE: Helical acquisition of images was performed from the lung bases through the pelvis. FINDINGS: LUNG BASES: No significant abnormality is appreciated. LIVER/GB: No significant abnormality is appreciated. PANCREAS: No significant abnormality is seen. SPLEEN: No significant abnormality is seen. ADRENALS: No significant abnormality is seen. KIDNEYS: No significant abnormality is seen. URINARY BLADDER: Limited assessment due to artifact from the hip prostheses. ADENOPATHY: None visualized. OSSEOUS STRUCTURES: Postsurgical change involving the left noted. Arthropathy of the right hip. Abno rmal attenuation involving the right femoral head suggestive of osteonecrosis.. BOWEL: Bowel gas pattern nonspecific. OTHER: Soft tissue calcifications in the posterior gluteal region may represent granuloma. Aorta demo nstrates atherosclerotic change but no evidence of aneurysm. Small fat-containing periumbilical herni a. Small hiatal hernia. IMPRESSION: 1. No acute process. 2. Correlate for osteonecrosis of the right femoral head.
== END | disposition home or self-care (01) ==
LOC: RADCTMAIN 08:56
PROVIDERS: ATTEND Urology
DX: R10.9 Unspecified abdominal pain (principal); R31.0 Gross hematuria
CPT/HCPCS: 74176

== ENCOUNTER 2021-02-10 14:09 | Emergency (ER) | payer BC, MEDICARE ==
[2021-02-10 14:20] VITALS: BP 122/86; PULSE 95; RESP 20; TEMP 98.7
[2021-02-10] MEDS ORDERED: ONDANSETRON 4 MG/2 ML VIAL IVP STA (14:34)
[2021-02-10] MEDS ORDERED: KETOROLAC 15 MG/ML 1 ML VIAL IVP STA (14:34)
[2021-02-10] MEDS ORDERED: SODIUM CHLORIDE 0.9% 500 ML 500 ML IV STA (14:34)
[2021-02-10] MEDS ORDERED: HYDROmorphone 0.5 MG/0.5 ML SYRINGE IVP STA ×3 (14:34→17:02)
[2021-02-10] MEDS ORDERED: SODIUM CHLORIDE 0.9% 1,000 ML IV STA (14:34)
[2021-02-10 14:49] LABS: Basophils % (A) 0 %; Eosinophils # (A) 0.1 k/uL (0-0.7); Eosinophils % (A) 1 %; HCT 48.2 % (39.0-53.0); HGB 16.4 gm/dL (13.0-17.5); Lymphocytes # (A) 0.8 k/uL (1.0-4.8); Lymphocytes % (A) 5 %; MCH 32.4 pg (25.0-35.0); MCHC 33.9 g/dL (31.0-37.0); MCV 95.4 fL (80.0-100.0); Mean Platelet Volume 7.6; Monocytes # (A) 0.3 k/uL (0-1.0); Monocytes % (A) 2 %; Neutrophils # (A) 12.9 k/uL (1.3-7.7); Neutrophils % (A) 92 %; Platelet Count 224 k/uL (150-450); RBC 5.05 m/uL (4.30-5.90); RDW 12.4 % (11.5-15.5)
[2021-02-10 14:56] LABS: Potassium 3.9 mmol/L (3.5-5.1)
[2021-02-10 14:59] LABS: AST 36 U/L (17-59); African American GFR (CKD) >90 (>60 ml/min/1.73 sqM); Albumin 4.7 g/dL (3.5-5.0); Alkaline Phosphatase 149 U/L (38-126); Amylase 71 U/L (30-110); Anion Gap 13 mmol/L; Blood Urea Nitrogen 12 mg/dL (9-20); Calcium 10.3 mg/dL (8.4-10.2); Carbon Dioxide 18 mmol/L (22-30); Chloride 106 mmol/L (98-107); Glucose 204 mg/dL (74-99); Lipase 79 U/L (23-300); Non-African American GFR(CKD) >90 (>60 ml/min/1.73 sqM); Sodium 137 mmol/L (137-145); Total Bilirubin 0.8 mg/dL (0.2-1.3)
--- NOTE | 2021-02-10 15:05 | ED ---
General Adult HPI - General Chief complaint: Urogenital Stated complaint: Poss Kidney Stone Time Seen by Provider: 02/10/21 14:20 Source: patient, family, RN notes reviewed, old records reviewed Mode of arrival: wheelchair Limitations: no limitations - History of Present Illness Initial comments: This a 51-year-old male who presents emergency department with past medical history significant for kidney stones. Patient states he thinks he is noted to stop. Patient states been having right-sided flank pain radiating to his lower abdomen for the last 6 days per patient states she didn't quite a bit of vomiting as well. Patient states all is taking is Tylenol at home and it has not helped the pain. Patient denies any fever chills or cough per patient denies any dysuria hematuria. Patient denies any testicular swelling or scrotal redness. Patient denies any back pain. Patient states the pain starts on the left side and radiates down to his lower abdomen. - Related Data Home Medications Medication Instructions Recorded Confirmed Pantoprazole [Protonix] 40 mg PO DAILY 02/22/18 02/10/21 Albuterol Sulfate [Albuterol 1 puff PO Q6H PRN 02/10/21 02/10/21 Sulfate Hfa] Ascorbic Acid [Vitamin C with Khushbu 500 mg PO DAILY 02/10/21 02/10/21 Hips] Cholecalciferol [Vitamin D3 (25 25 mcg PO DAILY 02/10/21 02/10/21 Mcg = 1000 Iu)] Fluticasone Nasal [place] [Flonase 1 spray EA NOSTRIL DAILY PRN 02/10/21 02/10/21 Nasal [place]] Vitamin E (Dl,Tocopheryl Acet) 400 unit PO DAILY 02/10/21 02/10/21 [Vitamin E (400 Iu = 180 mg)] diphenhydrAMINE HCL [Benadryl] 25 mg PO HS 02/10/21 02/10/21 Previous Rx's Medication Instructions Recorded Ketorolac [Toradol] 10 mg PO Q6HR #15 tab 02/10/21 Tamsulosin [Flomax] 0.4 mg PO DAILY #10 cap 02/10/21 Allergies Allergy/AdvReac Type Severity Reaction Status Date / Time milk Allergy Unknown Verified 02/10/21 16:54 Review of Systems ROS Statement: Those systems with pertinent positive or pertinent negative responses have been documented in the HPI. ROS Other: All systems not noted in ROS Statement are negative. Past Medical History Past Medical History: GERD/Reflux, Hearing Disorder / Deafness, Hyperlipidemia, Sleep Apnea/CPAP/BIPAP Additional Past Medical History / Comment(s): left femur fracture, PTSD, chronic pain, kidney surgery History of Any Multi-Drug Resistant Organisms: None Reported Past Surgical History: Back Surgery, Joint Replacement, Orthopedic Surgery Additional Past Surgical History / Comment(s): cranial fracture, right ankle, right hand. Past Anesthesia/Blood Transfusion Reactions: No Reported Reaction Additional Past Anesthesia/Blood Transfusion Reaction / Comment(s): CLAUSTROPHIC Past Psychological History: PTSD Smoking Status: Never smoker Past Alcohol Use History: Occasional Past Drug Use History: Marijuana - Past Family History Father Family Medical History: Cancer Mother Family Medical History: Cancer General Exam - General Exam Comments Initial Comments: GENERAL: Patient is well-developed and well-nourished. Patient is nontoxic and well- hydrated and is in moderate distress. ENT: Neck is soft and supple. No significant lymphadenopathy is noted. Oropharynx is clear. Moist mucous membranes. Neck has full range of motion without eliciting any pain. nd no masses were felt. EYES: The sclera were anicteric and conjunctiva were pink and moist. Extraocular movements were intact and pupils were equal round and reactive to light. Eyelids were unremarkable. PULMONARY: Unlabored respirations. Good breath sounds bilaterally. No audible rales rhonchi or wheezing was noted. CARDIOVASCULAR: There is a regular rate and rhythm without any murmurs gallops or rubs. ABDOMEN: Soft and nontender with normal bowel sounds. SKIN: Skin is clear with no lesions or rashes and otherwise unremarkable. NEUROLOGIC: Patient is alert and oriented x3. Cranial nerves II through XII are grossly intact. Motor and sensory are also intact. Normal speech, volume and content. Symmetrical smile. MUSCULOSKELETAL: Normal extremities with adequate strength and full range of motion. LYMPHATICS: No significant lymphadenopathy is noted PSYCHIATRIC: Normal psychiatric evaluation. Limitations: no limitations Course Vital Signs 02/10/21 14:18 Temperature 98.7 F Pulse Rate 95 Respiratory 20 Rate Blood Pressure 122/86 O2 Sat by Pulse 99 Oximetry Medical Decision Making - Medical Decision Making CAT scan shows a 4 mm distal ureter stone on the left with some [place]. Patient received Toradol and Dilaudid emergency department as well as Zofran and he was feeling considerably better and he will follow-up with urology. - Lab Data Result diagrams: 02/10/21 14:37 02/10/21 14:37 Lab Results 02/10/21 02/10/21 02/10/21 Range/Units 14:37 14:37 14:38 WBC 14.0 H (3.8-10.6) k/uL RBC 5.05 (4.30-5.90) m/uL Hgb 16.4 (13.0-17.5) gm/dL Hct 48.2 (39.0-53.0) % MCV 95.4 (80.0-100.0) fL MCH 32.4 (25.0-35.0) pg MCHC 33.9 (31.0-37.0) g/dL RDW 12.4 (11.5-15.5) % Plt Count 224 (150-450) k/uL MPV 7.6 Neutrophils % 92 % Lymphocytes % 5 % Monocytes % 2 % Eosinophils % 1 % Basophils % 0 % Neutrophils # 12.9 H (1.3-7.7) k/uL Lymphocytes # 0.8 L (1.0-4.8) k/uL Monocytes # 0.3 (0-1.0) k/uL Eosinophils # 0.1 (0-0.7) k/uL Basophils # 0.0 (0-0.2) k/uL Sodium 137 (137-145) mmol/L Potassium 3.9 (3.5-5.1) mmol/L Chloride 106 (98-107) mmol/L Carbon Dioxide 18 L (22-30) mmol/L Anion Gap 13 mmol/L BUN 12 (9-20) mg/dL Creatinine 0.69 (0.66-1.25) mg/dL Est GFR (CKD-EPI)AfAm >90 (>60 ml/min/1.73 sqM) Est GFR (CKD-EPI)NonAf >90 (>60 ml/min/1.73 sqM) Glucose 204 H (74-99) mg/dL Calcium 10.3 H (8.4-10.2) mg/dL Total Bilirubin 0.8 (0.2-1.3) mg/dL AST 36 (17-59) U/L ALT 32 (4-49) U/L Alkaline Phosphatase 149 H (38-126) U/L Total Protein 7.0 (6.3-8.2) g/dL Albumin 4.7 (3.5-5.0) g/dL Amylase 71 (30-110) U/L Lipase 79 (23-300) U/L Urine Color Yellow Urine Appearance Clear (Clear) Urine pH 8.0 (5.0-8.0) Ur Specific [place] 1.017 (1.001-1.035) Urine Protein Negative (Negative) Urine Glucose (UA) 4+ H (Negative) Urine Ketones 2+ H (Negative) Urine Blood Large H (Negative) Urine Nitrite Negative (Negative) Urine Bilirubin Negative (Negative) Urine Urobilinogen <2.0 (<2.0) mg/dL Ur Leukocyte Esterase Negative (Negative) Urine RBC >182 H (0-5) /hpf Urine WBC 4 (0-5) /hpf Urine Mucus Rare H (None) /hpf Disposition Clinical Impression: Kidney stone Disposition: HOME SELF-CARE Condition: Good Prescriptions: Tamsulosin [Flomax] 0.4 mg PO DAILY #10 cap Ketorolac [Toradol] 10 mg PO Q6HR #15 tab Is patient prescribed a controlled substance at d/c from ED?: No Referrals: Maddy Hernandez DO [Primary Care Provider] - 1-2 days Time of Disposition: 17:03
[2021-02-10 15:11] LABS: ALT 32 U/L (4-49)
--- NOTE | 2021-02-10 15:47 | XR ---
EXAMINATION TYPE: XR KUB DATE OF EXAM: 02/10/2021 3:34 PM CLINICAL HISTORY: Dysuria with nausea and vomiting and pain. History of kidney stone. TECHNIQUE: Two Upright KUB images of the abdomen are obtained. COMPARISON: KUB x-ray February 22, 2018. CT abdomen and pelvis December 06, 2019 FINDINGS: Gas is seen in nondistended stomach. Some paucity of bowel gas. Scattered gas is seen in no n-distended small and large bowel loops. There is bony projection from the left L5 transverse process superiorly. Scattered bilateral pelvic phleboliths. No free air. Lung bases are clear. Underlying sc oliosis. Metallic hardware from left hip surgery is partially imaged. No definitive nephrolithiasis. IMPRESSION: Overall nonspecific strongly favor nonobstructive bowel gas pattern. No definitive nephrolithiasis.
--- NOTE | 2021-02-10 16:32 | CT ---
EXAMINATION TYPE: CT abdomen pelvis wo con DATE OF EXAM: 02/10/2021 HISTORY: Left flank pain, history of stones. CT DLP: 678 mGycm. Automated Exposure Control for Dose Reduction was Utilized. TECHNIQUE: CT scan of the abdomen and pelvis is performed without oral or IV contrast. COMPARISON: CT abdomen and pelvis December 06, 2019 FINDINGS: Within the limitations of a non-contrast study, the following observations are made. LUNG BASES: No significant abnormality is appreciated. LIVER/GB: No significant abnormality is appreciated. PANCREAS: [id number] generalized fat replaced atrophy redemonstrated. SPLEEN: No significant abnormality is seen. ADRENALS: No significant abnormality is seen. KIDNEYS: Single 2 mm nonobstructing calculus right kidney mid to lower pole level coronal image 53. N o right-sided hydronephrosis. New Mild left-sided hydronephrosis due to obstructing 4 mm proximal le ft ureteric calculus on axial image 81 and coronal image 50. No additional left renal calculi. Streak artifact limits evaluation of bladder without intraluminal calculus clearly seen. Scattered pelvic p hleboliths redemonstrated. BOWEL: No significant abnormality is seen. GENITAL ORGANS: Mildly enlarged prostate gland thought present. Adjacent scattered pelvic phleboliths LYMPH NODES: No greater than 1cm abdominal or pelvic lymph nodes are appreciated. OSSEOUS STRUCTURES: Slight scoliotic curvature. Some facet arthropathy lower lumbar spine. Streak art ifact from left hip arthroplasty identified limiting evaluation of pelvic structures similar to prior . OTHER: Mild calcified plaque distal abdominal aorta. IMPRESSION: New 4 mm proximal left ureter calculus causing mild left-sided hydronephrosis.
[2021-02-10 16:37] LABS: Appearance,Urine Clear (Clear); Bilirubin,Urine Negative (Negative); Blood,Urine Large (Negative); Color,Urine Yellow; Glucose,Urine (UA) 4+ (Negative); Leukocyte Esterase,Urine Negative (Negative); Mucus,Urine Rare /hpf; Nitrite,Urine Negative (Negative); Protein,Urine Negative (Negative); RBC,Urine >182 /hpf (0-5); Specific Gravity,Urine 1.017 (1.001-1.035); Urobilinogen,Urine <2.0 mg/dL (<2.0); WBC,Urine 4 /hpf (0-5)
[2021-02-10 16:46] LABS: Ketones,Urine 2+ (Negative)
[2021-02-10] MEDS ORDERED: ACET/COD 300 MG/30 MG STARTER PACK 6 TAB BTL PO STA (17:03)
== END 2021-02-10 17:19 | disposition home or self-care (01) ==
LOC: EC 14:09
DX: N13.2 Hydronephrosis with renal and ureteral calculous obstruction (principal); E78.5 Hyperlipidemia, unspecified; K21.9 Gastro-esophageal reflux disease without esophagitis; F12.90 Cannabis use, unspecified, uncomplicated; Z79.1 Long term (current) use of non-steroidal anti-inflammatories (NSAID); Z79.899 Other long term (current) drug therapy
CPT/HCPCS: 36415; 80053; 82150; 83690; 85025; 81001; 74018; 74176; 96374; 96375 ×2; 96376 ×2; 96361; 99284; J2405; J1885; J1170

== ENCOUNTER 2021-02-18 10:50 | Day surgery (SDC) | payer BC, MEDICARE ==
[2021-02-16 15:27] VITALS: BMI 25.0
[~2021-02-18 10:50] MED LIST: DEXAMETHASONE SOD PHOSPHATE 4 MG/ML 1 ML VIAL IV ONE; HYDROmorphone 0.5 MG/0.5 ML SYRINGE IVP PRN; LACTATED RINGERS 1,000 ML IV SCH; ONDANSETRON 4 MG/2 ML VIAL IVP ONE
--- NOTE | 2021-02-18 11:18 | XR ---
EXAMINATION TYPE: XR KUB DATE OF EXAM: 02/18/2021 COMPARISON: NONE HISTORY: Pain TECHNIQUE: Single supine KUB image of the abdomen is obtained FINDINGS: Small bowel demonstrates no evidence for dilatation or air fluid levels. Gas and fecal material is seen in non-distended colon. No convincing evidence for pneumoperitoneum. No unusual calcifications. The lung bases are clear. The osseous structures are intact. IMPRESSION: 1. Overall nonobstructive bowel gas pattern.
[2021-02-18 11:35] LABS: Glucose,Whole Blood 88 mg/dL (75-99)
--- NOTE | 2021-02-18 12:05 | P.HPIHPCON ---
History of Present Illness H&P Date: 02/18/21 This is a 51 yo male with hx of 4 mm left sided proximal ureteral stone. He is symptomatic from his stone. Option of ESWL and Ureteroscopy was discussed with him. He agreed to proceed with left sided URS with holmium laser discussed with him risk of bleeding, infection and injury to the ureter. He understood all risks and agreed to proceed with left sided ureteroscopy with holmium laser, stone basketting and stent insertion. Consent for Procedure: I have explained the operation/procedure to the patient, including the risks, benefits, side effects, alternative therapies (including not receiving the proposed treatment or service), the likelihood of the patient achieving his/her goals, and potential recuperation problems for the procedure/sedation/analgesia, as well as any blood products, if indicated. I also explained to the patient the risks, benefits and side effects of the alternatives, as well as the risks related to not receiving the proposed procedure, care, treatment, or services. Past Medical History Past Medical History: GERD/Reflux, Hearing Disorder / Deafness, Hyperlipidemia, Sleep Apnea/CPAP/BIPAP Additional Past Medical History / Comment(s): RT femur fracture, PTSD, chronic pain, kidney surgery, KIDNEY STONES-CURRENTLY HAS ONE STUCK FOR PAST 12 DAYS History of Any Multi-Drug Resistant Organisms: None Reported Past Surgical History: Back Surgery, Joint Replacement, Orthopedic Surgery Additional Past Surgical History / Comment(s): cranial fracture, right ankle, right hand. LT [place], PRIOT SURGICAL PROCEDURES Past Anesthesia/Blood Transfusion Reactions: No Reported Reaction Additional Past Anesthesia/Blood Transfusion Reaction / Comment(s): CLAUSTROPHIC Smoking Status: Former smoker - Past Family History Father Family Medical History: Cancer Mother Family Medical History: Cancer Medications and Allergies Home Medications Medication Instructions Recorded Confirmed Type Pantoprazole [Protonix] 40 mg PO DAILY 02/22/18 02/18/21 History Albuterol Sulfate [Albuterol 1 puff PO Q6H PRN 02/10/21 02/18/21 History Sulfate Hfa] Ascorbic Acid [Vitamin C with Khushbu 500 mg PO DAILY 02/10/21 02/18/21 History Hips] Cholecalciferol [Vitamin D3 (25 25 mcg PO DAILY 02/10/21 02/18/21 History Mcg = 1000 Iu)] Fluticasone Nasal [place] [Flonase 1 spray EA NOSTRIL DAILY PRN 02/10/21 02/18/21 History Nasal [place]] Ketorolac [Toradol] 10 mg PO Q6HR #15 tab 02/10/21 02/18/21 Rx Tamsulosin [Flomax] 0.4 mg PO DAILY #10 cap 02/10/21 02/18/21 Rx diphenhydrAMINE HCL [Benadryl] 25 mg PO HS 02/10/21 02/18/21 History Fluticasone/Vilanterol [Breo 1 inhalation PO Q24HR 02/16/21 02/18/21 History Ellipta 100-25 Mcg Inhaler] Magnesium Oxide 400 mg PO DAILY 02/16/21 02/18/21 History Potassium Gluconate [Potassium 99 mg PO DAILY 02/16/21 02/18/21 History Gluconate ER] Allergies Allergy/AdvReac Type Severity Reaction Status Date / Time milk Allergy Vomiting Verified 02/18/21 11:11 Surgical - Exam Vital Signs Temp Pulse Resp BP Pulse Ox 98.2 F 72 24 116/77 98 02/18/21 11:21 02/18/21 11:21 02/18/21 11:21 02/18/21 11:21 02/18/21 11:21 - General well developed, well nourished - Eyes PERRL, normal ocular movement - ENT normal nares, normal mucosa - Psychiatric oriented to time, oriented to person, oriented to place Assessment and Plan Assessment: 51 yo male with hx of left sided ureteral stone -OR for left sided ureteroscopy with holmium laser, stone basketting and stent insertion.
[2021-02-18] MEDS: fentaNYL (PF) 50 MCG/ML 2 ML AMP IVP ONE ×2 (13:06→13:09)
[2021-02-18] MEDS ORDERED: PHENYLEPHRINE-0.9% NACL SYG 1,000 MCG/10 ML SYRINGE ONE (13:18)
[2021-02-18] MEDS ORDERED: PROPOFOL 10 MG/ML 20 ML VIAL IV ONE (13:18)
[2021-02-18] MEDS ORDERED: SUCCINYLCHOLINE CHLORIDE 100 MG/5 ML SYR IV ONE (13:18)
[2021-02-18] MEDS ORDERED: MIDAZOLAM 2 MG/2 ML VIAL ONE (13:18)
[2021-02-18] MEDS ORDERED: LIDOCAINE 1% INJ 10MG/ML (20 ML MDV) ONE (13:18)
[2021-02-18] MEDS ORDERED: fentaNYL (PF) 50 MCG/ML 2 ML AMP ONE (13:18)
[2021-02-18] MEDS ORDERED: HYDROmorphone (PF) 1 MG/ML ONE (13:18)
[2021-02-18] MEDS ORDERED: IOPAMIDOL-370 50ML BTL MISCELLANE ONE (13:58)
[2021-02-18] MEDS ORDERED: LACTATED RINGERS 1,000 ML IV ONE (14:05)
--- NOTE | 2021-02-18 14:18 | P.OP ---
Date of Procedure: 02/18/21 Preoperative Diagnosis: left ureteral stone Postoperative Diagnosis: Ureteral stone, ureteral stricture Procedure(s) Performed: Cystoscopy, left retrograde pyelogram, ureteroscopy, holmium laser lithotripsy stone basketting, ureteral balloon dilation and stent placement Implants: 6-Irish by 28 cm stent in left ureter Anesthesia: NEGRO Surgeon: Dago Barrera Estimated Blood Loss (ml): 1 Pathology: other (Left ureteral calculi) Condition: stable Disposition: PACU Indications for Procedure: This is a 51 yo male with hx of 4 mm left sided proximal ureteral stone. He is symptomatic from his stone. Option of ESWL and Ureteroscopy was discussed with him. He agreed to proceed with left sided URS with holmium laser discussed with him risk of bleeding, infection and injury to the ureter. He understood all risks and agreed to proceed with left sided ureteroscopy with holmium laser, stone basketting and stent insertion. Operative Findings: Left distal ureteral stricture, stone impacted at the site of the stricture Description of Procedure: Patient was brought to the operating room, general anesthesia was induced. He was prepped and draped in sterile fashion and placed in dorsal lithotomy position. Cystoscopy fitted with a 21-Irish sheath was inserted per urethra, cystoscopy was performed showed no abnormality within the bladder. Attention was then carried to the left ureteral orifice. A semirigid ureteroscope was advanced through the urethra and up the left ureteral orifice, a stricture was encountered in the distal ureter, it was approximately 6 cm away from the UVJ. I was able to advance the scope past the stricture with the assistance of the wire. Once I past the stricture stone was encountered proximal to the stricture. Using the holmium laser the stone was fragmented into small fragments, sizable fragments were removed using the stone basket and sent for analysis. At this time the scope was advanced all the way up to the proximal ureter, no additional stones were seen. Retrograde pyelogram was performed through the scope which showed no filling defect. Pullback ureteroscopy was performed showed no injury to the ureter, or sizable fragments. Of note the stricture was visualized again, measured approximately half a centimeter and it was approximately 6 cm away from the UVJ. At this time the ureteroscope was withdrawn, and ureteral balloon dilator was passed over the wire under fluoroscopy, the ureteral stricture was dilated using the balloon dilator. Next the ureteral balloon dilator was removed and the semirigid ureteroscope was reinserted, the distal ureter was reevaluated, and it was patent, there was no evidence of residual stricture after the balloon dilation. At this time the ureteroscope was withdrawn, and a ureteral stent was passed over the wire, the proximal curl was visualized on fluoroscopy and the distal curl was visualized using cystoscope. The bladder was emptied and the end of the case. Patient tolerated the procedure well was taken to PACU in stable condition
[2021-02-18 14:34] VITALS: TEMP 96.9
--- NOTE | 2021-02-18 14:34 | FL ---
EXAMINATION TYPE: FL urography retrograde DATE OF EXAM: 02/18/2021 COMPARISON: NONE HISTORY: left side ureteral calculi TECHNIQUE: Fluoroscopy. FINDINGS: left side ureteral calculi. DILATION/STENT PLACEMENT. 18 SEC FL TIME. 3 PICS ON SYN IMPRESSION: As Above.
[2021-02-18] MEDS ORDERED: HYDROmorphone 0.5 MG/0.5 ML SYRINGE IVP ONE ×2 (14:45→15:00)
[2021-02-18] MEDS ORDERED: KETOROLAC 15 MG/ML 1 ML VIAL ONE (14:46)
[2021-02-18] MEDS ORDERED: KETOROLAC 15 MG/ML 1 ML VIAL IVP ONE (14:47)
[2021-02-18 15:35] VITALS: BP 145/98; PULSE 74; RESP 20
== END 2021-02-18 16:30 | disposition home or self-care (01) ==
LOC: OR 10:50
PROVIDERS: ATTEND Urology
DX: N20.1 Calculus of ureter (principal); E78.5 Hyperlipidemia, unspecified; G47.33 Obstructive sleep apnea (adult) (pediatric); F43.10 Post-traumatic stress disorder, unspecified; K21.9 Gastro-esophageal reflux disease without esophagitis; Z87.442 Personal history of urinary calculi; Z79.899 Other long term (current) drug therapy
CPT/HCPCS: 52356; 82365; 74420; 74018; C2625; C1769; J2250; J1100; J0690; J2405; J2001; J3010; J1170 ×2; J1885; J2370; J0330; J2704; Q9967

== ENCOUNTER → 2021-05-14 | Day surgery (SDC) | payer BC, MEDICARE, OTHER ==
[2021-05-12 12:47] VITALS: BMI 23.7
[~2021-05-14] MED LIST changes: -DEXAMETHASONE SOD PHOSPHATE 4 MG/ML 1 ML VIAL IV ONE; -HYDROmorphone 0.5 MG/0.5 ML SYRINGE IVP PRN; +LIDOCAINE 1% (10MG/ML) FOR IV START INTRADERMA ONE; +LIDOCAINE 1% INJ 10MG/ML (20 ML MDV) ONE; -ONDANSETRON 4 MG/2 ML VIAL IVP ONE; +PROPOFOL 10 MG/ML 20 ML VIAL IV ONE
[2021-05-14 08:36] VITALS: RESP 16
--- NOTE | 2021-05-14 11:04 | P.PCN ---
Date of Procedure: 05/14/21 Procedure(s) Performed: Brief history: Patient is a pleasant 51-year-old white male scheduled for an elective upper endoscopy as well as colonoscopy as a part of evaluation of intermittent episodes of nausea vomiting abdominal pain and progressive weight loss of 30 pounds in the last 1 year duration. Procedure performed: Esophagogastroduodenoscopy with biopsy Colonoscopy Preoperative diagnosis: Intermittent episodes of nausea vomiting and change in bowel habits Progressive weight loss of undetermined the last 1 year duration Anesthesia: MAC Procedure: After informed consent was obtained from the patient was brought into the endoscopy unit and IV sedation was administered by anesthesia under continuous monitoring. Initially upper endoscopy was done. The Olympus GF 160 video endoscope was inserted inserted into the mouth and esophagus intubated without any difficulty and was gradually advanced into the stomach and duodenum and carefully examined. The bulb and second part of the duodenum appeared normal. Multiple biopsies were done from the duodenum to rule out celiac disease. The scope was then withdrawn into the stomach adequately insufflated with air and upon careful examination the antrum had mild gastritis and biopsies were done from this area. The body, cardia and fundus appeared normal. The scope was then withdrawn into the esophagus. The GE junction was located at 40 cm to the incisors. It appeared regular with 2 linear erosions consistent with LA grade B reflux esophagitis. Rest of the esophagus appeared normal. Patient tolerated the procedure well. At this time the patient continued to remain sedation. Initial digital rectal examination was normal. Olympus CF 160 video colonoscope was then inserted into the rectum and gradually advanced to the cecum without any difficulty. Careful examination was performed as the scope was gradually being withdrawn. The prep was excellent. The cecum, ascending colon, transverse colon, descending colon, sigmoid colon and rectum appeared normal. Retroflexion was performed in the rectum and all internal hemorrhoids were noted. Patient tolerated the procedure well. Impression: 1. Upper endoscopy revealed mild antral gastritis and LA grade B reflux esophagitis 2. Colonoscopy was within normal limits with no evidence of colitis or colorectal neoplasia. Small internal hemorrhoids. Recommendations: Findings of this examination were discussed with the patient as well as his family. He was advised to follow with the biopsy results. He can have a repeat screening colonoscopy in 10 years.
[2021-05-14 11:18] VITALS: BP 113/80; PULSE 69
== END ==
LOC: ORWHC2ENDO 08:03
PROVIDERS: ATTEND Internal Medicine Gastroenterology
DX: K21.00 Gastro-esophageal reflux disease with esophagitis, without bleeding (principal); K29.50 Unspecified chronic gastritis without bleeding; K64.8 Other hemorrhoids; J45.909 Unspecified asthma, uncomplicated; Z79.899 Other long term (current) drug therapy
CPT/HCPCS: 88305; 45378; 43239; J2001; J2704

== ENCOUNTER → 2021-07-19 | Outpatient (CLI) | payer OTHER | END | disposition home or self-care (01) | LOC: RADCTMAIN 15:13 | DX: Z53.9 Procedure and treatment not carried out, unspecified reason (principal) ==

== ENCOUNTER → 2022-05-19 | Outpatient (CLI) | payer OTHER ==
--- NOTE | 2022-05-19 23:35 | CT ---
EXAMINATION TYPE: CT abdomen pelvis wo/w con CT DLP: 2074.80 mGycm, Automated exposure control for dose reduction was used. DATE OF EXAM: 05/19/2022 5:25 PM COMPARISON: CT abdomen pelvis most recent from 02/10/2021 CLINICAL INDICATION:Male, 52 years old with history of R63.4 ABNORMAL WEIGHT LOSS; abnormal weight lo ss, nausea and vomiting TECHNIQUE: Axial CT of the abdomen and pelvis with and without contrast. Sagittal and coronal reform ats were created on a separate workstation. Contrast used:100 mL of Isovue 300 without and with IV Contrast, Oral contrast used: with Oral Contrast FINDINGS: LOWER CHEST: Unremarkable ABDOMEN LIVER: Unremarkable GALLBLADDER AND BILE DUCTS: Unremarkable. PANCREAS: There is some fatty changes to the pancreatic parenchyma. SPLEEN: Unremarkable. ADRENAL GLANDS: Unremarkable. KIDNEYS AND URETERS: No evidence of hydronephrosis or renal calculus. The ureters are unremarkable. PELVIS BLADDER: Unremarkable REPRODUCTIVE: Prostate is enlarged in size measuring 4.9 cm in transverse dimension. ABDOMEN & PELVIS STOMACH AND BOWEL: No evidence of bowel obstruction. Appendix is normal. PERITONEUM: No evidence of pneumoperitoneum or free fluid. VASCULATURE: No evidence of aortic aneurysm. MUSCULOSKELETAL: No acute osseous abnormalities, minimal disc degeneration changes of the spine mild scoliosis changes present. There is left hip arthroplasty. Hardware appears intact. There is adjacent heterotrophic calcifications. Curvilinear sclerosis surrounding geographic lucency in the femoral he ad. No definitive contour deformity of the femoral head at this time. LYMPH NODES: No gross evidence for lymphadenopathy. SOFT TISSUE/ABDOMINAL WALL: Unremarkable IMPRESSION: 1. No evidence for acute abdominal process or intraabdominal mass. 2. Prostatomegaly, correlate with serum PSA. 3. Avascular necrosis of the right femoral head. No evidence of subchondral collapse.
== END | disposition home or self-care (01) ==
LOC: RADCTMAIN 15:10
DX: N40.0 Benign prostatic hyperplasia without lower urinary tract symptoms (principal); M87.051 Idiopathic aseptic necrosis of right femur; R63.4 Abnormal weight loss
CPT/HCPCS: 74178; Q9967

== ENCOUNTER → 2023-06-06 | Outpatient (CLI) | payer OTHER ==
--- NOTE | 2023-06-06 20:10 | MR ---
EXAMINATION TYPE: MR cervical spine wo con DATE OF EXAM: 06/06/2023 2:48 PM CLINICAL INDICATION:Male, 53 years old with history of M54.2 CERVICALGIA; PHH, Neck pain that radiat es down arms, extreme pain when inhaling deeply. History of surgery COMPARISON: 11/09/2015. TECHNIQUE: Multi planar, multi sequence imaging was performed utilizing: T1-weighted, T2-weighted, an d turbo inversion recovery imaging of the cervical spine. IV Contrast: cc (none if empty) FINDINGS: Alignment: The cervical vertebral bodies have preserved heights. Alignment is within normal limits gi misha patient positioning. Bones: Scattered Modic endplate changes with osteophytes and disc space narrowing. Multilevel degener ative disc disease is noted and most pronounced at the C5-C7 vertebral levels. Fixation hardware at C 6-C7 anteriorly. Cord: The spinal cord is unremarkable with regards to their signal intensity and morphology. Discs: Multilevel disc desiccation is present. C2-C3: No significant disc pathology. The spinal canal is patent. No neural foraminal stenosis. C3-C4: No significant disc pathology. The spinal canal is patent. Bilateral facet and uncovertebral joint arthropathy are present with mild bilateral neural foraminal stenosis. C4-C5: No significant disc pathology. The spinal canal is patent. Bilateral facet and uncovertebral joint arthropathy are present with mild bilateral neural foraminal stenosis. C5-C6: No significant disc pathology. The spinal canal is patent. Bilateral facet and uncovertebral joint arthropathy are present with mild bilateral neural foraminal stenosis. C6-C7: No significant disc pathology. The spinal canal is patent. Bilateral facet and uncovertebral joint arthropathy are present with mild left neural foraminal stenosis. The right neural foramen is p atent. C7-T1: No significant disc pathology. The spinal canal is patent. Bilateral facet and uncovertebral joint arthropathy are present with mild left neural foraminal stenosis. The right neural foramen is p atent. Other: None. IMPRESSION: 1. No evidence for disc herniation or significant spinal canal stenosis. 2. Postsurgical changes with mild disc degeneration with associated osteoarthritic changes. No signif icant neural foraminal or spinal canal stenosis.
== END | disposition home or self-care (01) ==
LOC: RADMRIMAIN 14:04
DX: M47.22 Other spondylosis with radiculopathy, cervical region (principal); M50.10 Cervical disc disorder with radiculopathy, unspecified cervical region
CPT/HCPCS: 72141

== ENCOUNTER 2024-02-02 09:02 | Observation (INO) | payer BC, MEDICARE ==
--- NOTE | 2024-02-02 09:41 | ED ---
Male Urogenital HPI - General Chief complaint: Urogenital Stated complaint: kidney stone Time Seen by Provider: 02/02/24 09:39 Source: patient, family, RN notes reviewed Limitations: no limitations - History of Present Illness Initial comments: 54-year-old male presented to the ER with a chief complaint of right flank pain. Patient does report a history of kidney stones. He states since Monday he has been experiencing right flank pain. He describes the pain as a burning sharp sensation that radiates through his urethra even without voiding. Admits to nausea with occasional vomiting. He denies any hematuria, constipation or diarrhea. Denies any fevers or chills. He did take his daughters Flomax last night and this morning. He does report on Monday he started to experience left testicular discomfort which he states is typical when he has a stone. He denies any chest pain or shortness of breath or peripheral edema. - Related Data Home Medications Medication Instructions Recorded Confirmed Pantoprazole [Protonix] 40 mg PO HS 02/22/18 02/02/24 Albuterol Sulfate [Albuterol 1 puff PO RT-Q6H PRN 02/10/21 02/02/24 Sulfate Hfa] Fluticasone Nasal Perkins [Flonase 1 spray EA NOSTRIL DAILY PRN 02/10/21 02/02/24 Nasal Perkins] Allergies Allergy/AdvReac Type Severity Reaction Status Date / Time quetiapine [From Seroquel] Allergy Swelling Verified 02/02/24 14:55 atorvastatin AdvReac Unknown Verified 02/02/24 14:55 milk AdvReac Wheezing Verified 02/02/24 14:55 wasp venom Allergy Anaphylaxis Uncoded 02/02/24 14:55 Review of Systems ROS Statement: Those systems with pertinent positive or pertinent negative responses have been documented in the HPI. ROS Other: All systems not noted in ROS Statement are negative. Past Medical History Past Medical History: GERD/Reflux, Hearing Disorder / Deafness, Hyperlipidemia, Sleep Apnea/CPAP/BIPAP Additional Past Medical History / Comment(s): RT femur fracture, PTSD, chronic pain, kidney surgery, KIDNEY STONES- History of Any Multi-Drug Resistant Organisms: None Reported Past Surgical History: Back Surgery, Joint Replacement, Orthopedic Surgery Additional Past Surgical History / Comment(s): cranial fracture, right ankle, right hand. LT HAILEY, CERVICAL FUSION, LITHOTRIPSY, EGD Past Anesthesia/Blood Transfusion Reactions: No Reported Reaction Additional Past Anesthesia/Blood Transfusion Reaction / Comment(s): CLAUSTROPHIC Past Psychological History: PTSD Smoking Status: Former smoker Past Alcohol Use History: Rare Past Drug Use History: Marijuana - Past Family History Father Family Medical History: Cancer Mother Family Medical History: Cancer General Exam Limitations: no limitations General appearance: alert, in no apparent distress Respiratory exam: Present: normal lung sounds bilaterally. Absent: respiratory distress, wheezes, rales, rhonchi, stridor Cardiovascular Exam: Present: regular rate, normal rhythm, normal heart sounds. Absent: systolic murmur, diastolic murmur, rubs, gallop, clicks GI/Abdominal exam: Present: soft, normal bowel sounds. Absent: distended, tenderness, guarding, rebound, rigid exam: Present: normal inspection, circumcision Back exam: Present: CVA tenderness (R) Neurological exam: Present: alert, oriented X3, CN II-XII intact Skin exam: Present: warm, dry, intact, normal color. Absent: rash Course Vital Signs 02/02/24 02/02/24 02/02/24 09:17 10:10 12:07 Temperature 98 F Pulse Rate 82 70 73 Respiratory 18 20 22 Rate Blood Pressure 132/92 122/81 105/70 O2 Sat by Pulse 99 99 100 Oximetry 02/02/24 14:04 Temperature Pulse Rate 79 Respiratory 20 Rate Blood Pressure 124/82 O2 Sat by Pulse 98 Oximetry - Reevaluation(s) Reevaluation #1: 02/02/24 13:40 Case discussed with [facility] physician group, Andrea COREAS for admission. Medical Decision Making - Medical Decision Making Was pt. sent in by a medical professional or institution (, PA, [employer] INSTALLATION HELPER, urgent care, hospital, or alf...) When possible be specific @ -No Did you speak to anyone other than the patient for history (EMS, parent, family, police, friend...)? What history was obtained from this source @ -No Did you review nursing and triage notes (agree or disagree)? Why? @ -I reviewed and agree with nursing and triage notes Were old charts reviewed (outside hosp., previous admission, EMS record, old EKG, old radiological studies, urgent care reports/EKG's, alf records)? Report findings @ -No old charts were reviewed Differential Diagnosis (chest pain, altered mental status, abdominal pain women, abdominal pain men, vaginal bleeding, weakness, fever, dyspnea, syncope, headache, dizziness, GI bleed, back pain, seizure, CVA, palpatations, mental health, musculoskeletal)? @ -Differential Back Pain: Strain, zoster, cauda equina syndrome, epidural abscess, vertebral osteomyelitis, discitis, fracture, subluxation, disc herniation, DJD, spinal stenosis, dissection, AAA, pancreatitis, peptic ulcer disease, pyelonephritis, kidney stone, this is not meant to be an all-inclusive list. EKG interpreted by me (3pts min.). @ -None X-rays interpreted by me (1pt min.). @ -None done CT interpreted by me (1pt min.). @ -CT abdomen pelvis without IV contrast negative for acute process. U/S interpreted by me (1pt. min.). @ -None done What testing was considered but not performed or refused? (CT, X-rays, U/S, labs)? Why? @ -None What meds were considered but not given or refused? Why? @ -None Did you discuss the management of the patient with other professionals (professionals i.e. , PA, [employer] INSTALLATION HELPER, lab, RT, psych nurse, social and political studies professor, b2b sales manager, teacher, plant protection officer, case assembler)? Give summary @ -Case discussed with [facility], Andrea COREAS for admission. Was smoking cessation discussed for >3mins.? @ -No Was critical care preformed (if so, how long)? @ -No Were there social determinants of health that impacted care today? How? (Homelessness, low income, unemployed, alcoholism, drug addiction, transpo rtation, low edu. Level, literacy, decrease access to med. care, intermediate, rehab)? @ -No Was there de-escalation of care discussed even if they declined (Discuss DNR or withdrawal of care, Hospice)? DNR status @ -No What co-morbidities impacted this encounter? (DM, HTN, Smoking, COPD, CAD, Cancer, CVA, ARF, Chemo, Hep., AIDS, mental health diagnosis, sleep apnea, morbid obesity)? @ -None Was patient admitted / discharged? Hospital course, mention meds given and route, prescriptions, significant lab abnormalities, going to OR and other pertinent info. @ -Admitted. 54-year-old male presented to ER with a chief complaint of right flank pain. History and physical exam completed. Vitals within normal limits. Patient in no signs of acute distress but is laying in the position upon examination. Right CVA tenderness. No focal abdominal tenderness with normal bowel sounds. No overlying skin changes. Testicular exam completed and chaperoned by Magalis HARRIS, exam unremarkable. CBC unremarkable. CMP unremarkable. Urinalysis with without evidence of infection or passing nephrolithiasis. CT abdomen pelvis performed and negative. Patient received IV fluids, Dilaudid and Zofran for symptom control in the ER. Upon reevaluation, patient complaining of continued pain. 0.5 mg Dilaudid ordered with lidocaine patch. Patient monitored in the ER for approximately 1 hour post second dosing. Patient continued to complain of 7 out of 10 pain. Pain believed to be musculoskeletal in nature as patient locates pain to paraspinal muscles. No red flag back pain symptoms indicative of cauda equina syndrome. Admission considered at that time for intractable pain. Case discussed with [facility] physician group, Andrea COREAS, for admission. Patient agreeable for admission for further evaluation of intractable pain. Admitted in stable of condition. Case discussed with ED attending, Dr. Fuentes. Undiagnosed new problem with uncertain prognosis? @ -No Drug Therapy requiring intensive monitoring for toxicity (Heparin, Nitro, Insulin, Cardizem)? @ -No Were any procedures done? @ -No Diagnosis/symptom? @ -Right flank pain/intractable pain Acute, or Chronic, or Acute on Chronic? @ -Acute Uncomplicated (without systemic symptoms) or Complicated (systemic symptoms)? @ -Uncomplicated Side effects of treatment? @ -No Exacerbation, Progression, or Severe Exacerbation? @ -No Poses a threat to life or bodily function? How? (Chest pain, USA, NV, pneumonia, PE, COPD, DKA, ARF, appy, cholecystitis, CVA, Diverticulitis, Homicidal, Suicidal, threat to staff... and all critical care pts) @ -No - Lab Data Result diagrams: 02/02/24 10:02 02/02/24 10:33 Lab Results 02/02/24 02/02/24 02/02/24 Range/Units 10:02 10:02 10:02 WBC 6.4 (3.8-10.6) k/uL RBC 4.89 (4.30-5.90) m/uL Hgb 15.4 (13.0-17.5) gm/dL Hct 45.8 (39.0-53.0) % MCV 93.5 (80.0-100.0) fL MCH 31.4 (25.0-35.0) pg MCHC 33.6 (31.0-37.0) g/dL RDW 12.9 (11.5-15.5) % Plt Count 235 (150-450) k/uL MPV 6.7 Neutrophils % 56 % Lymphocytes % 30 % Monocytes % 7 % Eosinophils % 5 % Basophils % 1 % Neutrophils # 3.6 (1.3-7.7) k/uL Lymphocytes # 2.0 (1.0-4.8) k/uL Monocytes # 0.5 (0-1.0) k/uL Eosinophils # 0.3 (0-0.7) k/uL Basophils # 0.1 (0-0.2) k/uL Sodium (137-145) mmol/L Potassium (3.5-5.1) mmol/L Chloride (98-107) mmol/L Carbon Dioxide (22-30) mmol/L Anion Gap mmol/L BUN (9-20) mg/dL Creatinine (0.66-1.25) mg/dL Est GFR (CKD-EPI)AfAm (>60 ml/min/1.73 sqM) Est GFR (CKD-EPI)NonAf (>60 ml/min/1.73 sqM) Glucose (74-99) mg/dL Plasma Lactic Acid Oni 1.6 (0.7-2.0) mmol/L Calcium (8.4-10.2) mg/dL Total Bilirubin (0.2-1.3) mg/dL AST (17-59) U/L ALT (4-49) U/L Alkaline Phosphatase (38-126) U/L Total Protein (6.3-8.2) g/dL Albumin (3.5-5.0) g/dL Urine Color Colorless Urine Appearance Clear (Clear) Urine pH 6.0 (5.0-8.0) Ur Specific Friedens 1.020 (1.001-1.035) Urine Protein Negative (Negative) Urine Glucose (UA) Negative (Negative) Urine Ketones Negative (Negative) Urine Blood Negative (Negative) Urine Nitrite Negative (Negative) Urine Bilirubin Negative (Negative) Urine Urobilinogen <2.0 (<2.0) mg/dL Ur Leukocyte Esterase Negative (Negative) 02/02/24 Range/Units 10:33 WBC (3.8-10.6) k/uL RBC (4.30-5.90) m/uL Hgb (13.0-17.5) gm/dL Hct (39.0-53.0) % MCV (80.0-100.0) fL MCH (25.0-35.0) pg MCHC (31.0-37.0) g/dL RDW (11.5-15.5) % Plt Count (150-450) k/uL MPV Neutrophils % % Lymphocytes % % Monocytes % % Eosinophils % % Basophils % % Neutrophils # (1.3-7.7) k/uL Lymphocytes # (1.0-4.8) k/uL Monocytes # (0-1.0) k/uL Eosinophils # (0-0.7) k/uL Basophils # (0-0.2) k/uL Sodium 138 (137-145) mmol/L Potassium 4.1 (3.5-5.1) mmol/L Chloride 110 H (98-107) mmol/L Carbon Dioxide 24 (22-30) mmol/L Anion Gap 4 mmol/L BUN 17 (9-20) mg/dL Creatinine 0.84 (0.66-1.25) mg/dL Est GFR (CKD-EPI)AfAm >90 (>60 ml/min/1.73 sqM) Est GFR (CKD-EPI)NonAf >90 (>60 ml/min/1.73 sqM) Glucose 112 H (74-99) mg/dL Plasma Lactic Acid Oni (0.7-2.0) mmol/L Calcium 8.9 (8.4-10.2) mg/dL Total Bilirubin 0.6 (0.2-1.3) mg/dL AST 24 (17-59) U/L ALT 19 (4-49) U/L Alkaline Phosphatase 107 (38-126) U/L Total Protein 5.8 L (6.3-8.2) g/dL Albumin 3.7 (3.5-5.0) g/dL Urine Color Urine Appearance (Clear) Urine pH (5.0-8.0) Ur Specific Friedens (1.001-1.035) Urine Protein (Negative) Urine Glucose (UA) (Negative) Urine Ketones (Negative) Urine Blood (Negative) Urine Nitrite (Negative) Urine Bilirubin (Negative) Urine Urobilinogen (<2.0) mg/dL Ur Leukocyte Esterase (Negative) - Radiology Data Radiology results: report reviewed, image reviewed Disposition Clinical Impression: Intractable pain, Right flank pain Disposition: ADMITTED IP TO THIS [facility] Condition: Stable Referrals: [facility],Clinic [Primary Care Provider] - 1-2 days Time of Disposition: 15:11
[2024-02-02] MEDS: ONDANSETRON 4 MG/2 ML VIAL IVP STA (10:03)
[2024-02-02] MEDS: SODIUM CHLORIDE 0.9% 1,000 ML IV STA (10:03)
[2024-02-02] MEDS: HYDROmorphone 1 MG/ML 1 ML SYRINGE IVP STA (10:06)
[2024-02-02 10:14] LABS: Appearance,Urine Clear (Clear); Bilirubin,Urine Negative (Negative); Blood,Urine Negative (Negative); Color,Urine Colorless; Glucose,Urine (UA) Negative (Negative); Ketones,Urine Negative (Negative); Leukocyte Esterase,Urine Negative (Negative); Nitrite,Urine Negative (Negative); Protein,Urine Negative (Negative); Urobilinogen,Urine <2.0 mg/dL (<2.0)
[2024-02-02 10:17] LABS: Basophils # (A) 0.1 k/uL (0-0.2); Basophils % (A) 1 %; Eosinophils # (A) 0.3 k/uL (0-0.7); Eosinophils % (A) 5 %; HCT 45.8 % (39.0-53.0); HGB 15.4 gm/dL (13.0-17.5); Lymphocytes % (A) 30 %; MCH 31.4 pg (25.0-35.0); MCHC 33.6 g/dL (31.0-37.0); MCV 93.5 fL (80.0-100.0); Mean Platelet Volume 6.7; Monocytes # (A) 0.5 k/uL (0-1.0); Monocytes % (A) 7 %; Neutrophils # (A) 3.6 k/uL (1.3-7.7); Neutrophils % (A) 56 %; Platelet Count 235 k/uL (150-450); RBC 4.89 m/uL (4.30-5.90); RDW 12.9 % (11.5-15.5); WBC 6.4 k/uL (3.8-10.6)
[2024-02-02 11:03] LABS: ALT 19 U/L (4-49); AST 24 U/L (17-59); African American GFR (CKD) >90 (>60 ml/min/1.73 sqM); Albumin 3.7 g/dL (3.5-5.0); Alkaline Phosphatase 107 U/L (38-126); Anion Gap 4 mmol/L; Blood Urea Nitrogen 17 mg/dL (9-20); Calcium 8.9 mg/dL (8.4-10.2); Carbon Dioxide 24 mmol/L (22-30); Chloride 110 mmol/L (98-107); Glucose 112 mg/dL (74-99); Non-African American GFR(CKD) >90 (>60 ml/min/1.73 sqM); Potassium 4.1 mmol/L (3.5-5.1); Sodium 138 mmol/L (137-145); Total Bilirubin 0.6 mg/dL (0.2-1.3); Total Protein 5.8 g/dL (6.3-8.2)
--- NOTE | 2024-02-02 11:06 | CT ---
EXAMINATION TYPE: CT abdomen pelvis wo con DATE OF EXAM: 02/02/2024 HISTORY: right flank pain CT DLP: 861 mGycm. Automated Exposure Control for Dose Reduction was Utilized. TECHNIQUE: Multiple axial images are obtained through the abdomen and pelvis without IV contrast mat erial. COMPARISON: 05/19/2022 FINDINGS: Within the limitations of a non-contrast study, the following observations are made. The lung bases are clear. There is no gallstone, gallbladder distention, pericholecystic fluid or wall thickening. There is no biliary ductal dilatation. There is no organomegaly involving the liver, pancreas, spleen or adrenal glands. There are no renal calcifications or hydronephrosis. The bowel loops are normal in caliber and there is no dilatation or obstruction. No inflammatory wallace ges identified within the mesentery. There is no free intraperitoneal air or fluid. There is no pelvic mass, free fluid, abscess or adenopathy. Bilateral hip prostheses which limits evaluation of the pelvis due to streak artifact. IMPRESSION: No acute changes within the abdomen or pelvis within the limits of the exam.
[2024-02-02] MEDS: LIDOCAINE 4% PATCH TOPICAL ONE (12:03)
[2024-02-02] MEDS: HYDROmorphone 0.5 MG/0.5 ML SYRINGE IVP STA (12:05)
[2024-02-02] MEDS ORDERED: NALOXONE 0.4 MG/ML 1 ML VIAL IV PRN (13:38)
[2024-02-02] MEDS: CYCLOBENZAPRINE 10 MG TAB PO PRN (14:04)
[2024-02-02] MEDS: KETOROLAC 15 MG/ML 1 ML VIAL IVP PRN (14:06)
--- NOTE | 2024-02-02 14:57 | P.HPIM ---
History of Present Illness H&P Date: 02/02/24 History of Presenting Illness: Patient is a 54-year-old male past medical history of chronic recurrent kidney stones, GERD, hyperlipidemia, PTSD, marijuana use. Presented to the emergency department with a chief complaint of right flank pain. Patient reports sudden onset right flank pain on Monday similar to previous episodes of kidney stones. Patient reports pain radiating into his right groin and testicle accompanied by dysuria and nausea. Patient reports he tried to wait it out because he knows he has a history of kidney stones and has experienced these exact symptoms in the past. Patient reports however pain persistently worsened and has now become unbearable. He denies any hematuria or difficulties with urinary frequency/urgency and denies experiencing any urinary retention. Patient denies having any testicular swelling. Patient denies having any fevers, chills, diaphoresis, chest pain, palpitations, shortness of breath, abdominal pain, vomiting, or any other complaints at this time. Patient reports he has not seen his urologist, Dr. Barrera in a couple of years. Upon arrival to our facility, patient underwent evaluation in the emergency department. Vital signs upon arrival show blood pressure 132/92, heart rate 82, respiratory rate 18, temp 98 .0 F, and SpO2 of 99% on room air. Labs were completed and reviewed. CBC was unremarkable with WBC count of 6.4, hemoglobin of 15.4, platelet count of 235,000. BMP showing mild hyperchloremia with chloride of 110 otherwise normal findings. Glucose was 112. Lactic acid was 1.2. Liver profile unremarkable. Urinalysis negative for blood, protein, ketones, or infection. CT abdomen and pelvis without contrast was completed negative for acute intra-abdominal process showing no hydronephrosis or reports of renal calculi. Patient received multiple doses of IV Dilaudid in the emergency department and continued to have persistent right flank, right groin, and right testicular pain. Patient admitted under our services for intractable pain and consult placed to urology for evaluation. Review of systems: Pertinent positives and negatives as discussed in HPI, a complete review of systems was performed and all other systems are negative. Physical exam: Vital signs reviewed and stable. General: Nontoxic, no distress and appears stated age. Derm: Skin warm and dry, normal coloration for ethnicity. Head: Atraumatic, normocephalic and symmetric. Eyes: EOM's intact, no lid lag, and anicteric sclera Mouth: no lip lesions, mucus membranes moist Cardiovascular: regular rate and rhythm with normal S1S2, no murmur, positive posterior tibial pulses bilaterally, and cap refill < 2 seconds. Lungs: Respirations even, regular, and unlabored on room air. Lungs CTA bilaterally, no rhonchi, no rales, no wheezing, and no accessory muscle usage. Abdominal: soft, nontender to palpation, no guarding, no appreciable organomegaly. Positive for right CVA tenderness. Ext: ROM intact. No gross muscle atrophy, no edema, no contractures Neuro: Speech clear, face symmetrical and CN II-XII grossly intact with no noted focal neuro deficits Psych: Alert and oriented to person, place, time, and situation. Appropriate and pleasant affect. Assessment and Plan of Care: Intractable right flank, right groin, and right testicular pain History of recurrent chronic kidney stones Dysuria with negative urinalysis -Patient started back on Flomax 0.4 mg daily. -Patient to be provided with symptomatic care and pain management with Zofran 4 mg IVP every 8 hours as needed for nausea, Toradol 15 mg every 6 hours as needed for mild to moderate pain and Dilaudid 1 mg IVP every 3 hours as needed for severe pain. -Continue with gentle IV fluid hydration with 0.9% normal saline at 100 cc/h. -Consult placed to urology for evaluation due to unclear etiology of right flank, right groin, and right testicular pain as urinalysis and CT were negative. GERD Continue GI prophylaxis with Protonix 40 mg nightly. Data and imaging reviewed: As stated above in HPI The patient is admitted with an anticipated less than 2 midnight stay for evaluation of intractable right flank, right groin, and right testicular pain CODE STATUS: Full code DVT prophylaxis: Lovenox Anticipated discharge date: Pending clinical course likely within the next [address]: Home Patient was seen independently by Nurse Practitioner. This document was prepared using [employer] dictation software. Please allow for errors in rotary pump operator while rare they do occur. I reviewed the documentation as provided by the IRASEMA above, who is the original author of this note. I agree with the documented assessment and plan, with the following changes: none Past Medical History Past Medical History: GERD/Reflux, Hearing Disorder / Deafness, Hyperlipidemia, Sleep Apnea/CPAP/BIPAP Additional Past Medical History / Comment(s): RT femur fracture, PTSD, chronic pain, kidney surgery, KIDNEY STONES- History of Any Multi-Drug Resistant Organisms: None Reported Past Surgical History: Back Surgery, Joint Replacement, Orthopedic Surgery Additional Past Surgical History / Comment(s): cranial fracture, right ankle, right hand. LT HAILEY, CERVICAL FUSION, LITHOTRIPSY, EGD Past Anesthesia/Blood Transfusion Reactions: No Reported Reaction Additional Past Anesthesia/Blood Transfusion Reaction / Comment(s): CLAUSTROPHIC Past Psychological History: PTSD Smoking Status: Former smoker Past Alcohol Use History: Rare Past Drug Use History: Marijuana - Past Family History Father Family Medical History: Cancer Mother Family Medical History: Cancer Medications and Allergies Home Medications Medication Instructions Recorded Confirmed Type Pantoprazole [Protonix] 40 mg PO HS 02/22/18 02/02/24 History Albuterol Sulfate [Albuterol 1 puff PO RT-Q6H PRN 02/10/21 02/02/24 History Sulfate Hfa] Fluticasone Nasal [place] [Flonase 1 spray EA NOSTRIL DAILY PRN 02/10/21 02/02/24 History Nasal [place]] Allergies Allergy/AdvReac Type Severity Reaction Status Date / Time quetiapine [From Seroquel] Allergy Swelling Verified 02/02/24 14:55 atorvastatin AdvReac Unknown Verified 02/02/24 14:55 milk AdvReac Wheezing Verified 02/02/24 14:55 wasp venom Allergy Anaphylaxis Uncoded 02/02/24 14:55 Physical Exam Osteopathic Statement: *. No significant issues noted on an osteopathic structural exam other than those noted in the History and Physical/Consult. Vitals: Vital Signs Temp Pulse Resp BP Pulse Ox 02/02/24 14:04 79 20 124/82 98 02/02/24 12:07 73 22 105/70 100 02/02/24 10:10 70 20 122/81 99 02/02/24 09:17 98 F 82 18 132/92 99 Intake and Output 02/01/24 02/02/24 02/02/24 22:59 06:59 14:59 Other: Weight 90.718 kg Results CBC & Chem 7: 02/02/24 10:02 02/02/24 10:33 Labs: Abnormal Lab Results - Last 24 Hours (Table) 09/06/24 Range/Units 10:33 Chloride 110 H (98-107) mmol/L Glucose 112 H (74-99) mg/dL Total Protein 5.8 L (6.3-8.2) g/dL
[2024-02-02] MEDS ORDERED: ALBUTEROL HFA INHALER INHALATION PRN (15:32)
[2024-02-02] MEDS ORDERED: FLUTICASONE NASAL 50MCG/SPRAY 16GM BTL EA NOSTRIL PRN (15:32)
[2024-02-02] MEDS: SODIUM CHLORIDE 0.9% 1,000 ML IV SCH (16:18)
[2024-02-02] MEDS: HYDROmorphone 1 MG/ML 1 ML SYRINGE IVP PRN (16:19)
[2024-02-02] MEDS: TAMSULOSIN 0.4 MG CAP.ER.24H PO SCH (18:46)
[2024-02-02] MEDS: PANTOPRAZOLE 40 MG TABLET PO SCH (20:15)
[2024-02-03] MEDS: ENOXAPARIN 40 MG/0.4 ML SYRINGE SQ SCH (08:28)
[2024-02-03] MEDS: KETOROLAC 15 MG/ML 1 ML VIAL IVP PRN (11:36)
--- NOTE | 2024-02-03 12:22 | P.PN ---
Subjective Progress Note Date: 02/03/24 Hospital Course: Patient is a 54-year-old male past medical history of chronic recurrent kidney stones, GERD, hyperlipidemia, PTSD, marijuana use. Presented to the emergency department with a chief complaint of right flank pain. Patient reports sudden onset right flank pain on Monday similar to previous episodes of kidney stones. Patient reports pain radiating into his right groin and testicle accompanied by dysuria and nausea. Patient reports he tried to wait it out because he knows he has a history of kidney stones and has experienced these exact symptoms in the past. Patient reports however pain persistently worsened and has now become unbearable. He denies any hematuria or difficulties with urinary frequency/urgency and denies experiencing any urinary retention. Patient denies having any testicular swelling. Patient denies having any fevers, chills, diaphoresis, chest pain, palpitations, shortness of breath, abdominal pain, vomiting, or any other complaints at this time. Patient reports he has not seen his urologist, Dr. Barrera in a couple of years. Upon arrival to our facility, patient underwent evaluation in the emergency department. Vital signs upon arrival show blood pressure 132/92, heart rate 82, respiratory rate 18, temp 98.0 F, and SpO2 of 99% on room air. Labs were completed and reviewed. CBC was unremarkable with WBC count of 6.4, hemoglobin of 15.4, platelet count of 235,000. BMP showing mild hyperchloremia with chloride of 110 otherwise normal findings. Glucose was 112. Lactic acid was 1.2. Liver profile unremarkable. Urinalysis negative for blood, protein, ketones, or infection. CT abdomen and pelvis without contrast was completed negative for acute intra-abdominal process showing no hydronephrosis or reports of renal calculi. Patient received multiple doses of IV Dilaudid in the emergency department and continued to have persistent right flank, right groin, and right testicular pain. Patient admitted under our services for intractable pain and consult placed to urology for evaluation. Physical exam: Patient seen and fully evaluated at bedside this morning. He continues to report right flank pain, dysuria and mild right groin pain but states testicular pain has resolved. Vital signs reviewed and stable. General: Nontoxic, no distress and appears stated age. Derm: Skin warm and dry, normal coloration for ethnicity. Head: Atraumatic, normocephalic and symmetric. Eyes: EOM's intact, no lid lag, and anicteric sclera Mouth: no lip lesions, mucus membranes moist Cardiovascular: regular rate and rhythm with normal S1S2, no murmur, positive posterior tibial pulses bilaterally, and cap refill < 2 seconds. Lungs: Respirations even, regular, and unlabored on room air. Lungs CTA bilaterally, no rhonchi, no rales, no wheezing, and no accessory muscle usage. Abdominal: soft, nontender to palpation, no guarding, no appreciable organ omegaly. Positive for right CVA tenderness. Ext: ROM intact. No gross muscle atrophy, no edema, no contractures Neuro: Speech clear, face symmetrical and CN II-XII grossly intact with no noted focal neuro deficits Psych: Alert and oriented to person, place, time, and situation. Appropriate and pleasant affect. Assessment and Plan of Care: Intractable right flank, right groin, and right testicular pain History of recurrent chronic kidney stones Dysuria with negative urinalysis -Patient started back on Flomax 0.4 mg daily. -Patient to be provided with symptomatic care and pain management with Zofran 4 mg IVP every 8 hours as needed for nausea, Toradol 30 mg every 6 hours as needed for mild to moderate pain and Dilaudid 1 mg IVP every 3 hours as needed for severe pain. -Continue with gentle IV fluid hydration with 0.9% normal saline at 100 cc/h. -Consult placed to urology for evaluation due to unclear etiology of right flank, right groin, and right testicular pain as urinalysis and CT were negative. Urology evaluated increasing Toradol to 30 mg IV every 6 hours and recommending continued fluid hydration and close monitoring over the next [address] unclear not showing right ureter clearly secondary to patient's prosthetic hip. GERD Continue GI prophylaxis with Protonix 40 mg nightly. Data and imaging reviewed: Vital signs reviewed and stable. Blood pressure 130/85, heart rate 93, respiratory rate 17, temp 97.3 F, and SpO2 of 92% on room air. CODE STATUS: Full code DVT prophylaxis: Lovenox Anticipated discharge date: Pending clinical course likely within the next [address]: Home Patient was seen independently by Nurse Practitioner. This document was prepared using [employer] dictation software. Please allow for errors in red hat linux engineer while rare they do occur. I reviewed the documentation as provided by the IRASEMA above, who is the original author of this note. I agree with the documented assessment and plan, with the following changes: none Objective - Vital Signs Vital signs: Vital Signs Temp 98.2 F 02/03/24 00:57 Pulse 76 02/03/24 00:57 Resp 18 02/03/24 00:57 BP 100/63 02/03/24 00:57 Pulse Ox 97 02/03/24 00:57 FiO2 Intake & Output 02/02/24 02/03/24 02/03/24 18:59 06:59 18:59 Intake Total 1680 Balance 1680 Weight 90.718 kg Intake: Oral 1680 Other: Voiding Method Toilet # Voids 3 - Labs CBC & Chem 7: 02/04/24 03:19 02/04/24 03:19 Labs: Abnormal Lab Results - Last 24 Hours (Table) 02/02/24 Range/Units 10:33 Chloride 110 H (98-107) mmol/L Glucose 112 H (74-99) mg/dL Total Protein 5.8 L (6.3-8.2) g/dL
[2024-02-03] MEDS: diphenhydrAMINE 50 MG CAP PO SCH (13:31)
[2024-02-03] MEDS: LORATADINE 10 MG TAB PO SCH (13:31)
--- NOTE | 2024-02-03 15:10 | P.GSCN ---
History of Present Illness Consult date: 02/03/24 Reason for Consult: Right flank pain rule out kidney stone History of present illness: 54-year-old male with history of recurrent kidney stones, previous history of left-sided ureteroscopy with holmium laser in 2020. Presented to the hospital with right-sided flank pain with radiation down to the right testicle, indicates pain is very similar to his previous kidney stone pain. Denies any nausea or vomiting, denies any dysuria or gross hematuria. No trigger for his pain. He underwent a CT abdomen and pelvis that showed no evidence of hydronephrosis or any ureteral or renal stones, but of note the distal ureter was difficult to evaluate secondary to artifact from hip replacement. At this time he continues to have pain Review of Systems - Constitutional Denies fever, Denies weight loss - Cardiovascular Denies chest pain, Denies shortness of breath - Respiratory Denies cough, Denies 7 - Gastrointestinal Reports as per HPI - Genitourinary Reports flank pain - Integumentary Denies rash, Denies unusual bruising - Neurological Denies headaches, Denies syncope Past Medical History Past Medical History: GERD/Reflux, Hearing Disorder / Deafness, Hyperlipidemia, Sleep Apnea/CPAP/BIPAP Additional Past Medical History / Comment(s): RT femur fracture, PTSD, chronic pain, kidney surgery, KIDNEY STONES- History of Any Multi-Drug Resistant Organisms: None Reported Past Surgical History: Back Surgery, Joint Replacement, Orthopedic Surgery Additional Past Surgical History / Comment(s): cranial fracture, right ankle, right hand. LT HAILEY, CERVICAL FUSION, LITHOTRIPSY, EGD Past Anesthesia/Blood Transfusion Reactions: No Reported Reaction Additional Past Anesthesia/Blood Transfusion Reaction / Comm: CLAUSTROPHIC Past Psychological History: PTSD Smoking Status: Former smoker Past Alcohol Use History: Rare Past Drug Use History: Marijuana - Past Family History Father Family Medical History: Cancer Mother Family Medical History: Cancer Medications and Allergies Home Medications Medication Instructions Recorded Confirmed Type Pantoprazole [Protonix] 40 mg PO HS 02/22/18 02/02/24 History Albuterol Sulfate [Albuterol 1 puff PO RT-Q6H PRN 02/10/21 02/02/24 History Sulfate Hfa] Fluticasone Nasal [place] [Flonase 1 spray EA NOSTRIL DAILY PRN 02/10/21 02/02/24 History Nasal [place]] Cetirizine HCl [Zyrtec] 10 mg PO DAILY 02/03/24 02/03/24 History diphenhydrAMINE HCL [Benadryl 100 mg PO DAILY 02/03/24 02/03/24 History Allergy] Allergies Allergy/AdvReac Type Severity Reaction Status Date / Time quetiapine [From Seroquel] Allergy Swelling Verified 02/02/24 14:55 atorvastatin AdvReac Unknown Verified 02/02/24 14:55 milk AdvReac Wheezing Verified 02/02/24 14:55 wasp venom Allergy Anaphylaxis Uncoded 02/02/24 14:55 Surgical - Exam Vital Signs Temp Pulse Resp BP Pulse Ox 98 F 82 18 132/92 99 02/02/24 09:17 02/02/24 09:17 02/02/24 09:17 02/02/24 09:17 02/02/24 09:17 - General well developed, well nourished, no distress, moderate pain - Eyes normal ocular movement, no pale - ENT normal nares, normal mucosa - Respiratory normal expansion, normal respiratory effort - Abdomen Abdomen: soft, tender (Flank right upper quadrant) - Psychiatric oriented to time, oriented to person, oriented to place Results - Labs 02/02/24 10:02 02/02/24 10:33 Assessment and Plan Assessment: -year-old male with history of recurrent kidney stones, having onset of right flank pain with radiation down to the testicle, exam is only significant for right flank tenderness. CT abdomen pelvis showed no evidence of ureteral stone or hydronephrosis, but of note the distal ureter was difficult to evaluate due to artifact from help with placement. Discussed with him given the lack of hydronephrosis and the lack of RBC on urinalysis kidney stone is unlikely but cannot be completely ruled out as there is potential he might have a distal ureteral stone as the distal ureter was difficult to evaluate. Time recommend continued pain management we will reassess tomorrow
[2024-02-04 09:35] LABS: HCT 40.6 % (39.6-50.0); HGB 13.1 g/dL (13.0-17.0); MCH 31.6 pg (27.0-32.0); MCHC 32.3 g/dL (32.0-37.0); MCV 97.8 FL (80.0-97.0); Mean Platelet Volume 9.7 FL (9.5-12.2); NRBC Per 100 WBC 0 X 10*3/uL (0.00-0.01); Platelet Count 189 X 10*3/uL (140-440); RBC 4.15 X 10*6/uL (4.40-5.60); RDW 13.1 % (11.5-14.5); WBC 6.01 X 10*3/uL (4.50-10.00)
--- NOTE | 2024-02-04 09:52 | P.PN ---
Subjective Progress Note Date: 02/04/24 the patient who has a history of kidney stones treated in the past by Dr. Johnson and was admitted with right flank pain. He had a computed tomography scan that did not identify an obvious stone however he has had bilateral hip surgery in the distal ureters not well seen. He is still having flank pain consistent with a right ureteral calculus. Objective - Vital Signs Vital signs: Vital Signs Temp 97.7 F 02/04/24 07:08 Pulse 63 02/04/24 08:00 Resp 18 02/04/24 08:00 BP 122/77 02/04/24 07:08 Pulse Ox 99 02/04/24 07:08 FiO2 Intake & Output 02/03/24 02/04/24 02/04/24 18:59 06:59 18:59 Intake Total 354 560 0 Balance 354 560 0 Intake: Oral 354 560 0 Other: Voiding Method Toilet Toilet Toilet # Voids 3 3 - Labs CBC & Chem 7: 02/04/24 03:19 02/02/24 10:33 Labs: Abnormal Lab Results - Last 24 Hours (Table) 02/04/24 Range/Units 03:19 RBC 4.15 L (4.40-5.60) X 10*6/uL MCV 97.8 H (80.0-97.0) [place] Assessment and Plan Assessment: impression: Right right flank pain. History kidney stones.possible ureteral calculus Recommendations: I will obtain a KUB to see if we can see any evidence of a stone in the region of the distal ureter where the computed tomography scan was unable to identify the right distal ureter due to hip surgery.
[2024-02-04 10:06] LABS: Blood Urea Nitrogen 16.5 mg/dL (9.0-27.0); Calcium 8.1 mg/dL (8.7-10.3); Carbon Dioxide 23.2 mmol/L (21.6-31.8); Chloride 108 mmol/L (96-109); Glucose 98 mg/dL (70-110); Potassium 4.8 mmol/L (3.5-5.5); Sodium 138 mmol/L (135-145)
--- NOTE | 2024-02-04 10:28 | XR ---
KUB. HISTORY: Right flank pain COMPARISON: 02/18/2021 TECHNIQUE: 3 supine views of the abdomen were obtained.. FINDINGS: The lung bases are clear. The bowel gas pattern is nonspecific and there is no evidence of obstruction. No suspicious abdominal or pelvic calcifications are seen. There are multiple small phleboliths in th e pelvis. There are bilateral hip prostheses. There is moderate heterotopic bone formation associated with the left hip. IMPRESSION: Nonspecific bowel gas pattern. There are no definite calcifications suspicious for renal or ureteral calcification.
--- NOTE | 2024-02-04 13:39 | P.PN ---
Subjective Progress Note Date: 02/04/24 Hospital Course: Patient is a 54-year-old male past medical history of chronic recurrent kidney stones, GERD, hyperlipidemia, PTSD, marijuana use. Presented to the emergency department with a chief complaint of right flank pain. Patient reports sudden onset right flank pain on Monday similar to previous episodes of kidney stones. Patient reports pain radiating into his right groin and testicle accompanied by dysuria and nausea. Patient reports he tried to wait it out because he knows he has a history of kidney stones and has experienced these exact symptoms in the past. Patient reports however pain persistently worsened and has now become unbearable. He denies any hematuria or difficulties with urinary frequency/urgency and denies experiencing any urinary retention. Patient denies having any testicular swelling. Patient denies having any fevers, chills, diaphoresis, chest pain, palpitations, shortness of breath, abdominal pain, vomiting, or any other complaints at this time. Patient reports he has not seen his urologist, Dr. Barrera in a couple of years. Upon arrival to our facility, patient underwent evaluation in the emergency department. Vital signs upon arrival show blood pressure 132/92, heart rate 82, respiratory rate 18, temp 98.0 F, and SpO2 of 99% on room air. Labs were completed and reviewed. CBC was unremarkable with WBC count of 6.4, hemoglobin of 15.4, platelet count of 235,000. BMP showing mild hyperchloremia with chloride of 110 otherwise normal findings. Glucose was 112. Lactic acid was 1.2. Liver profile unremarkable. Urinalysis negative for blood, protein, ketones, or infection. CT abdomen and pelvis without contrast was completed negative for acute intra-abdominal process showing no hydronephrosis or reports of renal calculi. Patient received multiple doses of IV Dilaudid in the emergency department and continued to have persistent right flank, right groin, and right testicular pain. Patient admitted under our services for intractable pain and consult placed to urology for evaluation. Physical exam: Patient seen and fully evaluated at bedside this morning. He continues to report significant right lower flank pain. He states testicular pain and groin pain have resolved but right lower flank pain remains persistent and unrelieved. Vital signs reviewed and stable. General: Nontoxic, no distress and appears stated age. Derm: Skin warm and dry, normal coloration for ethnicity. Head: Atraumatic, normocephalic and symmetric. Eyes: EOM's intact, no lid lag, and anicteric sclera Mouth: no lip lesions, mucus membranes moist Cardiovascular: regular rate and rhythm with normal S1S2, no murmur, positive posterior tibial pulses bilaterally, and cap refill < 2 seconds. Lungs: Respirations even, regular, and unlabored on room air. Lungs CTA bilaterally, no rhonchi, no rales, no wheezing, and no accessory muscle usage. Abdominal: soft, nontender to palpation, no guarding, no appreciable organomegaly. Positive for right CVA tenderness. Ext: ROM intact. No gross muscle atrophy, no edema, no contractures Neuro: Speech clear, face symmetrical and CN II-XII grossly intact with no noted focal neuro deficits Psych: Alert and oriented to person, place, time, and situation. Appropriate and pleasant affect. Assessment and Plan of Care: Intractable right flank, right groin, and right testicular pain History of recurrent chronic kidney stones Dysuria with negative urinalysis -Patient started back on Flomax 0.4 mg daily. -Patient to be provided with symptomatic care and pain management with Zofran 4 mg IVP every 8 hours as needed for nausea, Toradol 30 mg every 6 hours as needed for mild to moderate pain and Dilaudid 1 mg IVP every 3 hours as needed for severe pain. -Continue with gentle IV fluid hydration with 0.9% normal saline at 100 cc/h. -Consult placed to urology for evaluation due to unclear etiology of right flank, right groin, and right testicular pain as urinalysis and CT were negative. Urology evaluated increasing Toradol to 30 mg IV every 6 hours and recommending continued fluid hydration and close monitoring over the next [address] unclear not showing right ureter clearly secondary to patient's prosthetic hip. GERD Continue GI prophylaxis with Protonix 40 mg nightly. Data and imaging reviewed: Vital signs reviewed and stable. Blood pressure 122/77, heart rate 63, respiratory rate 18, temp 97.7 F, and SpO2 of 99% on room air. Morning labs reviewed. CBC and BMP remain unremarkable. BMP showing renal function with BUN of 16.5, creatinine 1.0, and GFR of 90. CODE STATUS: Full code DVT prophylaxis: Lovenox Anticipated discharge date: Pending clinical course further recommendations from urologist, likely within the next [address]: Home Patient was seen independently by Nurse Practitioner. This document was prepared using [employer] dictation software. Please allow for errors in welder apprentice arc while rare they do occur. I reviewed the documentation as provided by the IRASEMA above, who is the original author of this note. I agree with the documented assessment and plan, with the following changes: none Objective - Vital Signs Vital signs: Vital Signs Temp 97.7 F 02/04/24 07:08 Pulse 63 02/04/24 08:00 Resp 18 02/04/24 08:00 BP 122/77 02/04/24 07:08 Pulse Ox 99 02/04/24 07:08 FiO2 Intake & Output 02/03/24 02/04/24 02/04/24 18:59 06:59 18:59 Intake Total 354 560 Balance 354 560 Intake: Oral 354 560 Other: Voiding Method Toilet Toilet Toilet # Voids 3 3 - Labs CBC & Chem 7: 02/04/24 03:19 02/04/24 03:19
[2024-02-05 09:15] LABS: BUN/Creat Ratio 13.08 Ratio (12.00-20.00); Blood Urea Nitrogen 15.7 mg/dL (9.0-27.0); Carbon Dioxide 25.8 mmol/L (21.6-31.8); Chloride 104 mmol/L (96-109); Glucose 99 mg/dL (70-110); Potassium 4.2 mmol/L (3.5-5.5); Sodium 138 mmol/L (135-145)
[2024-02-05 09:16] LABS: ALT 18 U/L (10-49); AST 18 U/L (14-35); Albumin 3.6 g/dL (3.8-4.9); Albumin/Globulin Ratio 2.77 Ratio (1.60-3.17); Alkaline Phosphatase 114 U/L (41-126); Calcium 8.4 mg/dL (8.7-10.3); Globulin 1.3 g/dL (1.6-3.3); Total Bilirubin <0.2 mg/dL (0.3-1.2); Total Protein 4.9 g/dL (6.2-8.2)
--- NOTE | 2024-02-05 09:22 | P.PN ---
Subjective Progress Note Date: 02/05/24 Principal diagnosis: Right flank pain The patient is a 54-year-old male with a history of urolithiasis. He continues to report right flank pain radiating to the right lower quadrant. He states that the pain is colicky in nature and when severe he rates it as an 8 on a 1-10 scale. Objective - Vital Signs Vital signs: Vital Signs Temp 98.3 F 02/05/24 07:00 Pulse 74 02/05/24 07:00 Resp 16 02/05/24 07:00 BP 129/64 02/05/24 07:00 Pulse Ox 98 02/05/24 07:00 FiO2 Intake & Output 02/04/24 02/05/24 02/05/24 18:59 06:59 18:59 Intake Total 300 Balance 300 Intake: Oral 300 Other: Voiding Method Toilet Toilet # Voids 6 2 # Bowel Movements 1 - Constitutional General appearance: Present: average body habitus, cooperative, severe distress - Psychiatric Psychiatric: Present: A&O x's 3 - Labs CBC & Chem 7: 02/04/24 03:19 02/05/24 03:08 Labs: Abnormal Lab Results - Last 24 Hours (Table) 02/04/24 02/04/24 Range/Units 03:19 03:19 RBC 4.15 L (4.40-5.60) X 10*6/uL MCV 97.8 H (80.0-97.0) FL Calcium 8.1 L (8.7-10.3) mg/dL Assessment and Plan (1) Right flank pain Current Visit: Yes Status: Acute Code(s): R10.9 - UNSPECIFIED ABDOMINAL PAIN SNOMED Code(s): 889738899 Plan: I had a lengthy discussion with the patient regarding the fact that the CT scan showed no evidence of hydronephrosis or urolithiasis. Due to his hip prostheses, the most distal aspect of the ureter was not seen. No calculi were seen on the K[facility] x-ray, and urinalysis showed no evidence of hematuria. Therefore, I feel that the likelihood of a ureteral calculus is very low, but not 0. The patient states that his pain has been ongoing for the past week, and he chooses to undergo cystoscopy with right retrograde pyelogram, possible right ureteroscopy with stone basketing, possible right ureteral stent insertion. I am hopeful that this can be performed later today. In the meantime, he will remain NPO.
--- NOTE | 2024-02-05 12:22 | P.PN ---
Subjective Progress Note Date: 02/05/24 Hospital Course: Patient is a 54-year-old male past medical history of chronic recurrent kidney stones, GERD, hyperlipidemia, PTSD, marijuana use. Presented to the emergency department with a chief complaint of right flank pain. Patient reports sudden onset right flank pain on Monday similar to previous episodes of kidney stones. Patient reports pain radiating into his right groin and testicle accompanied by dysuria and nausea. Patient reports he tried to wait it out because he knows he has a history of kidney stones and has experienced these exact symptoms in the past. Patient reports however pain persistently worsened and has now become unbearable. He denies any hematuria or difficulties with urinary frequency/urgency and denies experiencing any urinary retention. Patient denies having any testicular swelling. Patient denies having any fevers, chills, diaphoresis, chest pain, palpitations, shortness of breath, abdominal pain, vomiting, or any other complaints at this time. Patient reports he has not seen his urologist, Dr. Barrera in a couple of years. Upon arrival to our facility, patient underwent evaluation in the emergency department. Vital signs upon arrival show blood pressure 132/92, heart rate 82, respiratory rate 18, temp 98.0 F, and SpO2 of 99% on room air. Labs were completed and reviewed. CBC was unremarkable with WBC count of 6.4, hemoglobin of 15.4, platelet count of 235,000. BMP showing mild hyperchloremia with chloride of 110 otherwise normal findings. Glucose was 112. Lactic acid was 1.2. Liver profile unremarkable. Urinalysis negative for blood, protein, ketones, or infection. CT abdomen and pelvis without contrast was completed negative for acute intra-abdominal process showing no hydronephrosis or reports of renal calculi. Patient received multiple doses of IV Dilaudid in the emergency department and continued to have persistent right flank, right groin, and right testicular pain. Patient admitted under our services for intractable pain and consult placed to urology for evaluation. Physical exam: Patient seen and fully evaluated at bedside this morning. He continues to report significant right lower flank pain. States that he discussed with urology and they are taking him for cystoscopy later today. Patient denies having any other questions, needs, or concerns at this time. Vital signs reviewed and stable. General: Nontoxic, no distress and appears stated age. Derm: Skin warm and dry, normal coloration for ethnicity. Head: Atraumatic, normocephalic and symmetric. Eyes: EOM's intact, no lid lag, and anicteric sclera Mouth: no lip lesions, mucus membranes moist Cardiovascular: regular rate and rhythm with normal S1S2, no murmur, positive posterior tibial pulses bilaterally, and cap refill < 2 seconds. Lungs: Respirations even, regular, and unlabored on room air. Lungs CTA bilaterally, no rhonchi, no rales, no wheezing, and no accessory muscle usage. Abdominal: soft, nontender to palpation, no guarding, no appreciable organomegaly. Positive for right CVA tenderness. Ext: ROM intact. No gross muscle atrophy, no edema, no contractures Neuro: Speech clear, face symmetrical and CN II-XII grossly intact with no noted focal neuro deficits Psych: Alert and oriented to person, place, time, and situation. Appropriate and pleasant affect. Assessment and Plan of Care: Intractable right flank, right groin, and right testicular pain Acute kidney injury History of recurrent chronic kidney stones Dysuria with negative urinalysis -Continue Flomax 0.4 mg daily. -Patient to be provided with symptomatic care and pain management with Zofran 4 mg IVP every 8 hours as needed for nausea, Toradol 30 mg every 6 hours as needed for mild to moderate pain and Dilaudid 1 mg IVP every 3 hours as needed for severe pain. -Continue with gentle IV fluid hydration with 0.9% normal saline at 100 cc/h. -Consult placed to urology for evaluation due to unclear etiology of right flank, right groin, and right testicular pain as urinalysis and CT were negative. -Urology reevaluated, and secondary to patient's persistent right lower flank pain they have decided to proceed with cystoscopy with right retrograde pyelogram and possible ureteroscopy with stone basketing and/or right ureteral stent placement later today. GERD Continue GI prophylaxis with Protonix 40 mg nightly. Data and imaging reviewed: Vital signs reviewed and stable. Blood pressure 122/77, heart rate 63, respiratory rate 18, temp 97.7 F, and SpO2 of 99% on room air. Morning labs reviewed. BMP showing acute kidney injury with BUN of 15.7, creatinine of 1.2, GFR of 72 from baseline renal function of creatinine of 0.8 with GFR greater than 90. CODE STATUS: Full code DVT prophylaxis: Lovenox Anticipated discharge date: Pending clinical course Anticipated discharge place: Home Patient was seen independently by Nurse Practitioner. This document was prepared using [employer] dictation software. Please allow for errors in gusset ripper while rare they do occur. I reviewed the documentation as provided by the IRASEMA above, who is the original author of this note. I agree with the documented assessment and plan, with the following changes: none Objective - Vital Signs Vital signs: Vital Signs Temp 98.3 F 02/05/24 07:00 Pulse 74 02/05/24 07:00 Resp 16 02/05/24 07:00 BP 129/64 02/05/24 07:00 Pulse Ox 98 02/05/24 07:00 FiO2 Intake & Output 02/04/24 02/05/24 02/05/24 18:59 06:59 18:59 Intake Total 300 Balance 300 Intake: Oral 300 Other: Voiding Method Toilet Toilet Toilet # Voids 6 2 # Bowel Movements 1 - Labs CBC & Chem 7: 02/04/24 03:19 02/05/24 03:08 Labs: Abnormal Lab Results - Last 24 Hours (Table) 02/05/24 Range/Units 03:08 Calcium 8.4 L (8.7-10.3) mg/dL Total Bilirubin <0.2 L (0.3-1.2) mg/dL Total Protein 4.9 L (6.2-8.2) g/dL Albumin 3.6 L (3.8-4.9) g/dL Globulin 1.3 L (1.6-3.3) g/dL
[2024-02-05] MEDS: IV FLUID CONTINUATION 1,000 ML IV ONE (15:18)
[2024-02-05] MEDS: ONDANSETRON 4 MG/2 ML VIAL IVP PRN (15:28)
[2024-02-05] MEDS: DEXAMETHASONE SOD PHOSPHATE 4 MG/ML 1 ML VIAL IVP ONE (15:29)
[2024-02-05] MEDS ORDERED: MIDAZOLAM 2 MG/2 ML VIAL ONE (16:25)
[2024-02-05] MEDS ORDERED: LIDOCAINE 1% INJ 10MG/ML (20 ML MDV) ONE (16:25)
[2024-02-05] MEDS ORDERED: PROPOFOL 10 MG/ML 20 ML VIAL IV ONE (16:25)
[2024-02-05] MEDS ORDERED: PHENYLEPHRINE-0.9% NACL SYG 1,000 MCG/10 ML SYRINGE ONE (16:25)
[2024-02-05] MEDS ORDERED: ceFAZolin 1 GM/50 ML BAG (PMX) ONE (16:25)
[2024-02-05] MEDS ORDERED: fentaNYL (PF) 50 MCG/ML 2 ML AMP ONE (16:25)
[2024-02-05] MEDS: SODIUM CHLORIDE 0.9% 100 ML with ceFAZolin 2,000 MG IV ONE (16:30)
[2024-02-05] MEDS: IOPAMIDOL-370 100ML BTL MISCELLANE ONE (16:49)
[2024-02-05] MEDS: LACTATED RINGERS 1,000 ML IV ONE (16:50)
--- NOTE | 2024-02-05 17:21 | P.OP ---
Date of Procedure: 02/05/24 Preoperative Diagnosis: Right renal colic Postoperative Diagnosis: Same Procedure(s) Performed: Cystoscopy, right retrograde pyelogram, right ureteroscopy Anesthesia: REESEA Surgeon: Kip Mcnair Estimated Blood Loss (ml): 0 IV fluids (ml): 700 Pathology: none sent Condition: stable Disposition: PACU Indications for Procedure: The patient is a 54-year-old white male with a history of urolithiasis. He was admitted with symptoms suggestive of right renal colic. Urinalysis was normal, and CT scan showed no evidence of hydronephrosis or urolithiasis. The patient was advised that on the basis of this, it is highly unlikely that he has a ureteral calculus. However, he has experienced intractable symptoms for the past week and states that his current symptoms are similar to previous episodes of renal colic. Operative Findings: Normal study. No evidence of urolithiasis. Description of Procedure: The patient was taken to the operating room and placed in the dorsolithotomy position, with legs supported in Andrews stirrups. The external genitalia was prepped and draped sterilely. The 30 lens was used to introduce the 19-Congolese Storz cystoscopic sheath through the urethra and into the bladder under direct vision. The prostatic urethra showed evidence of mild lateral lobe enlargement. The bladder was examined in its entirety. Both ureteral orifices were normal anatomic location and configuration, and clear urine effluxed from both. No tumors or foreign bodies were seen. Using a 10 Congolese cone-tip catheter, a right retrograde pyelogram was performed. The ureter was normal in course and caliber, with no filling defects seen. Specifically, there was no evidence of ureteral dilation, and no calculi were seen. The right intrarenal collecting system appeared normal, with no evidence of hydronephrosis. The system drained promptly. The cystoscope was removed, and the [facility] semirigid ureteroscope was advanced into the bladder. The right ureteral orifice was cannulated, and the ureteroscope was slowly advanced under direct vision, up to the ureteropelvic junction. No tumors, calculi, or other abnormalities were seen. The ureteroscope was slowly withdrawn under direct vision. The patient tolerated the procedure well and was taken to the recovery room in stable condition.
--- NOTE | 2024-02-05 17:26 | FL ---
Fluoroscopy INDICATION: Pain FINDINGS: Fluoroscopy time: 13.4 seconds. Total dose area product (DAP) in uGy*m?, mGy*cm? (or similar): 1.5238 Images obtained: 7. IMPRESSION: 1. Documentation of fluoroscopy.
[2024-02-05] MEDS: HYDROmorphone 0.5 MG/0.5 ML SYRINGE IVP STA (17:40)
[2024-02-06 07:33] VITALS: BP 106/64; PULSE 72; RESP 15; TEMP 98.1
--- NOTE | 2024-02-06 09:13 | P.PN ---
Subjective Progress Note Date: 02/06/24 Principal diagnosis: Right flank pain The patient underwent cystoscopy, right retrograde pyelogram, and right ureteroscopy yesterday. There was no evidence of hydronephrosis or ur olithiasis. He states that he feels better this morning. He does report dysuria, and states that he is voiding hourly. He states that his pain completely resolves after micturition, but following that he develops gradual onset of right flank discomfort. Objective - Vital Signs Vital signs: Vital Signs Temp 97.6 F 02/06/24 03:32 Pulse 70 02/06/24 03:32 Resp 16 02/06/24 03:32 BP 126/78 02/06/24 03:32 Pulse Ox 98 02/06/24 03:32 FiO2 Intake & Output 02/05/24 02/06/24 02/06/24 18:59 06:59 18:59 Intake Total 1000 Output Total 300 Balance 700 Intake: IV 1000 Output: Urine 300 Estimated Blood Loss 0 Other: Voiding Method Toilet Toilet # Voids 1 1 - Constitutional General appearance: Present: average body habitus, cooperative, no acute distress - Psychiatric Psychiatric: Present: A&O x's 3 - Labs CBC & Chem 7: 02/04/24 03:19 02/05/24 03:08 Labs: Abnormal Lab Results - Last 24 Hours (Table) 02/05/24 Range/Units 03:08 Calcium 8.4 L (8.7-10.3) mg/dL Total Bilirubin <0.2 L (0.3-1.2) mg/dL Total Protein 4.9 L (6.2-8.2) g/dL Albumin 3.6 L (3.8-4.9) g/dL Globulin 1.3 L (1.6-3.3) g/dL Assessment and Plan (1) Right flank pain Current Visit: Yes Status: Acute Code(s): R10.9 - UNSPECIFIED ABDOMINAL PAIN SNOMED Code(s): 939069547 Plan: I reassured Mr. Damon that I have not identified any pathology, and that I do not feel he requires any further evaluation. From a urologic standpoint, he may be discharged home. A postvoid residual will be checked in view of his increased urinary frequency, which is likely just postoperative in nature.
--- NOTE | 2024-02-06 11:29 | P.DS ---
Providers Date of admission: 02/02/24 13:38 Expected date of discharge: 02/06/24 Attending physician: Malik Sagastume MD Consults: 02/02/24 18:00 Consult Physician Routine Consulting Provider: Dago Barrera Consult Reason/Comments: persistent R flank pain radiating into groin and right testicle CT neg Do you want consulting provider notified?: Yes Primary care physician: [facility] Hospital Course: Discharge Diagnosis: Intractable right flank, right groin, and right testicular pain. Unclear etiology, patient was started on Flomax 0.4 mg daily and was evaluated by urologist. Urinalysis unremarkable and CT abdomen and pelvis was negative for acute process. Patient did undergo cystoscopy with right retrograde pyelogram which was negative. Patient cleared from urology perspective and is medically stable for discharge at this time. Patient to follow-up outpatient with PCP in 1 to 2 days and with urology in 1 week. Acute kidney injury. Renal Function stable with BUN of 15.7, creatinine 1.2, and GFR of 72 at time of discharge. History of recurrent chronic kidney stones Dysuria with negative urinalysis GERD Continue GI prophylaxis with Protonix 40 mg nightly. Hospital Course: Patient is a 54-year-old male past medical history of chronic recurrent kidney stones, GERD, hyperlipidemia, PTSD, marijuana use. Presented to the emergency department with a chief complaint of right flank pain. Patient reports sudden onset right flank pain on Monday similar to previous episodes of kidney stones. Patient reports pain radiating into his right groin and testicle accompanied by dysuria and nausea. Patient reports he tried to wait it out because he knows he has a history of kidney stones and has experienced these exact symptoms in the past. Patient reports however pain persistently worsened and has now become unbearable. He denies any hematuria or difficulties with urinary frequency/urgency and denies experiencing any urinary retention. Patient denies having any testicular swelling. Patient denies having any fevers, chills, diaphoresis, chest pain, palpitations, shortness of breath, abdominal pain, vomiting, or any other complaints at this time. Patient reports he has not seen his urologist, Dr. Barrera in a couple of years. Upon arrival to our facility, patient underwent evaluation in the emergency department. Vital signs upon arrival show blood pressure 132/92, heart rate 82, respiratory rate 18, temp 98.0 F, and SpO2 of 99% on room air. Labs were completed and reviewed. CBC was unremarkable with WBC count of 6.4, hemoglobin of 15.4, platelet count of 235,000. BMP showing mild hyperchloremia with chloride of 110 otherwise normal findings. Glucose was 112. Lactic acid was 1.2. Liver profile unremarkable. Urinalysis negative for blood, protein, ketones, or infection. CT abdomen and pelvis without contrast was completed negative for acute intra-abdominal process showing no hydronephrosis or reports of renal calculi. Patient received multiple doses of IV Dilaudid in the emergency department and continued to have persistent right flank, right groin, and right testicular pain. Patient admitted under our services for intractable pain and consult placed to urology for evaluation. Unclear etiology, patient was started on Flomax 0.4 mg daily and was evaluated by urologist. Urinalysis unremarkable and CT abdomen and pelvis was negative for acute process. Patient did undergo cystoscopy with right retrograde pyelogram which was negative. Patient cleared from urology perspective and is medically stable for discharge at this time. Patient to follow-up outpatient with PCP in 1 to 2 days and with urology in 1 week. Physical exam: Vital signs reviewed and stable. General: Nontoxic, no distress and appears stated age. Derm: Skin warm and dry, normal coloration for ethnicity. Head: Atraumatic, normocephalic and symmetric. Eyes: EOM's intact, no lid lag, and anicteric sclera Mouth: no lip lesions, mucus membranes moist Cardiovascular: regular rate and rhythm with normal S1S2, no murmur, positive posterior tibial pulses bilaterally, and cap refill < 2 seconds. Lungs: Respirations even, regular, and unlabored on room air. Lungs CTA bilaterally, no rhonchi, no rales, no wheezing, and no accessory muscle usage. Abdominal: soft, nontender to palpation, no guarding, no appreciable organomegaly. Positive for right CVA tenderness. Ext: ROM intact. No gross muscle atrophy, no edema, no contractures Neuro: Speech clear, face symmetrical and CN II-XII grossly intact with no noted focal neuro deficits Psych: Alert and oriented to person, place, time, and situation. Appropriate and pleasant affect. A total of 35 minutes of time were spent preparing this complex discharge summary. Pt was discharged on 02/06/2024 at 11:29 AM. Patient was seen independently by Nurse Practitioner. This document was prepared using [employer] dictation software. Please allow for errors in account executive trainee while rare they do occur. I reviewed the documentation as provided by the IRASEMA above, who is the original author of this note. I agree with the documented assessment and plan, with the following changes: none Patient Condition at Discharge: Stable Plan - Discharge Summary New Discharge Prescriptions: New Tamsulosin [Flomax] 0.4 mg PO PC-SUPPER 30 Days #30 cap Continue Pantoprazole [Protonix] 40 mg PO HS Albuterol Sulfate [Albuterol Sulfate Hfa] 1 puff PO RT-Q6H PRN PRN Reason: Shortness Of Breath Cetirizine HCl [Zyrtec] 10 mg PO DAILY Fluticasone Nasal [place] [Flonase Nasal [place]] 1 spray EA NOSTRIL DAILY PRN PRN Reason: Allergy Symptoms diphenhydrAMINE HCL [Benadryl] 100 mg PO DAILY Discharge Medication List Pantoprazole [Protonix] 40 mg PO HS 02/22/18 [History] Albuterol Sulfate [Albuterol Sulfate Hfa] 1 puff PO RT-Q6H PRN 02/10/21 [History] Fluticasone Nasal [place] [Flonase Nasal [place]] 1 spray EA NOSTRIL DAILY PRN 02/10/21 [History] Cetirizine HCl [Zyrtec] 10 mg PO DAILY 02/03/24 [History] diphenhydrAMINE HCL [Benadryl] 100 mg PO DAILY 02/03/24 [History] Tamsulosin [Flomax] 0.4 mg PO PC-SUPPER 30 Days #30 cap 02/06/24 [Rx] Follow up Appointment(s)/Referral(s): Kip Mcnair MD [STAFF PHYSICIAN] - 1 Week [facility] [Primary Care Provider] - 1-2 days Discharge Disposition: HOME SELF-CARE
== END 2024-02-06 12:26 | disposition home or self-care (01) ==
LOC: EC 09:02 → 6NMEDSUR 13:38
PROVIDERS: ADMIT Internal Medicine; ATTEND Internal Medicine
DX: R10.31 Right lower quadrant pain (principal); N50.811 Right testicular pain; N17.9 Acute kidney failure, unspecified; R30.0 Dysuria; K21.9 Gastro-esophageal reflux disease without esophagitis; N40.0 Benign prostatic hyperplasia without lower urinary tract symptoms; E78.5 Hyperlipidemia, unspecified; G47.30 Sleep apnea, unspecified; G89.29 Other chronic pain; Z87.442 Personal history of urinary calculi; Z87.891 Personal history of nicotine dependence; Z79.899 Other long term (current) drug therapy
CPT/HCPCS: 36415; 74018; 74176; 80048; 80053; 81003; 83605; 85025; 85027; 96361; 96372; 96374; 96375; 96376; 99285

== ENCOUNTER → 2024-05-24 | Outpatient (CLI) | payer OTHER ==
--- NOTE | 2024-05-24 10:32 | CT ---
EXAMINATION TYPE: CT chest wo con DATE OF EXAM: 05/24/2024 COMPARISON: None CLINICAL INDICATION: Male, 54 years old with history of R11.10 Vomiting unspecified; PHH, sob TECHNIQUE: CT scan of the thorax is performed without IV contrast. CT DLP: [address] CTDI: mGy Automated exposure control for dose reduction was used. FINDINGS: There is a 3 mm nodule in the right upper lobe, 4.6 mm nodule in the left lower lobe additional micro nodule in the left lower lobe. There is no airspace consolidation. There is no abnormal interstitial density. There is no pleural effusion or pneumothorax. The heart and great vessels are normal in size. There is no mediastinal, hilar or axillary adenopathy. Limited scanning through the upper abdomen reveals no gross abnormality. No focal osseous lesions. IMPRESSION: 1. No acute cardiac pulmonary disease. 2. 3 small sub-5 mm nodule as described. If this is a high risk patient then routine screening at yea rly levels is recommended. 3. No significant abnormality seen within the upper abdomen. [facility], Workstation: ROSE 05/24/2024 10:29 AM
--- NOTE | 2024-05-24 15:55 | US ---
EXAMINATION TYPE: US gallbladder DATE OF EXAM: 05/24/2024 COMPARISON: 02/02/24 CLINICAL INDICATION: Male, 54 years old with history of R11.10 Vomiting unspecified; vomiting while e ating TECHNIQUE: Grayscale and color Doppler imaging of the right upper quadrant was performed. FINDINGS: EXAM MEASUREMENTS: Liver Length: 14.0 cm Gallbladder Wall: 0.2 cm CBD: 0.31 cm Right Kidney: 10.3 x 5.1 x 4.8 cm COMPUTER ARTIST NOTES: Pancreas: tail obscured by bowel gas. Parts seen appear wnl Liver: heterogeneous Gallbladder: wnl Evidence for sonographic Weeks's sign: No CBD: wnl Right Kidney: wnl IMPRESSION: No evidence for acute process. [facility], , 05/24/2024 3:53 PM
== END | disposition home or self-care (01) ==
LOC: RADUSWWP 09:12
PROVIDERS: ATTEND Family Medicine
DX: R11.10 Vomiting, unspecified (principal); R91.1 Solitary pulmonary nodule
CPT/HCPCS: 71250; 76705

== ENCOUNTER → 2024-05-27 | Day surgery (SDC) | payer OTHER ==
[2024-05-24 11:09] VITALS: BMI 26.3
[~2024-05-27] MED LIST changes: -LIDOCAINE 1% (10MG/ML) FOR IV START INTRADERMA ONE; +LIDOCAINE 1% (10MG/ML) FOR IV START INTRADERMA PRN
[2024-05-27] MEDS: LACTATED RINGERS 1,000 ML IV ONE (06:15)
[2024-05-27 06:56] VITALS: TEMP 98
--- NOTE | 2024-05-27 07:57 | P.PCN ---
Date of Procedure: 05/27/24 Procedure(s) Performed: Brief history: Patient is a pleasant 54-year-old white male scheduled for an elective upper endoscopy as well as colonoscopy as a part of evaluation of episodes of nausea vomiting/GERD and change in bowel habits for the last several years duration Procedure performed: Esophagogastroduodenoscopy with biopsy Colonoscopy Preoperative diagnosis: Episodes of nausea vomiting History of GERD Change in bowel habits Anesthesia: MAC Procedure: After informed consent was obtained from the patient was brought into the endoscopy unit and IV sedation was administered by anesthesia under continuous monitoring. Initially upper endoscopy was done. The Olympus GF 160 video endoscope was inserted inserted into the mouth and esophagus intubated without any difficulty and was gradually advanced into the stomach and duodenum and carefully examined. The bulb and second part of the duodenum appeared normal. Biopsies of the duodenum were done to rule out celiac disease. The scope was then withdrawn into the stomach adequately insufflated with air and upon careful examination the antrum a and mild gastritis and biopsies were done from this area. Because of the body, cardia and fundus appeared normal. The scope was then withdrawn into the esophagus. The GE junction was located at 42 cm to the incisors. It appeared regular with no erythema erosions or ulcerations. Rest of the esophagus appeared normal. Patient tolerated the procedure well. At this time the patient continued to remain sedation. Initial digital rectal examination was normal. Olympus CF 160 video colonoscope was then inserted into the rectum and gradually advanced to the cecum without any difficulty. Careful examination was performed as the scope was gradually being withdrawn. The prep was excellent. The cecum, ascending colon, transverse colon, descending colon, sigmoid colon and rectum appeared normal. Retroflexion was performed in the rectum and internal hemorrhoids were noted. Patient tolerated the procedure well. Impression: 1. Upper endoscopy revealed mild gastritis and irregular GE junction but no evidence of esophagitis or Lamb's esophagus 2. Colonoscopy revealed spinal hemorrhoids but no encephalitis or colorectal neoplasia Recommendations: Findings of this examination were discussed with the patient as well as his family. He was advised to follow with the biopsy results. Repeat screening colonoscopy in 10 years. Follow-up in the office in 2 weeks.
[2024-05-27 08:18] VITALS: RESP 16
[2024-05-27 08:35] VITALS: BP 128/89; PULSE 63
== END ==
LOC: ORWHC2ENDO 06:22
PROVIDERS: ATTEND Internal Medicine Gastroenterology
DX: K29.50 Unspecified chronic gastritis without bleeding (principal); K21.00 Gastro-esophageal reflux disease with esophagitis, without bleeding; K64.8 Other hemorrhoids; E78.5 Hyperlipidemia, unspecified; G47.33 Obstructive sleep apnea (adult) (pediatric); F43.10 Post-traumatic stress disorder, unspecified; K21.9 Gastro-esophageal reflux disease without esophagitis; Z87.442 Personal history of urinary calculi; Z99.89 Dependence on other enabling machines and devices; Z79.899 Other long term (current) drug therapy; Z87.891 Personal history of nicotine dependence; Z88.8 Allergy status to other drugs, medicaments and biological substances
CPT/HCPCS: 88305; 45378; 43239; J2003; J2704

== ENCOUNTER 2024-06-21 14:09 | Emergency (ER) | payer BC, OTHER ==
--- NOTE | 2024-06-21 14:55 | ED ---
Back Pain HPI - General Chief Complaint: Back Pain/Injury Stated Complaint: back pain Time Seen by Provider: 06/21/24 14:24 Source: patient, RN notes reviewed Mode of arrival: ambulatory Limitations: no limitations - History of Present Illness Initial Comments: This is a 54-year-old male presenting with back pain (02/05) x 1 week. Patient states he bent forward, washing the dog when his back "locked" with ongoing pain radiating to left thigh. States pain worsens with movement. Endorses use of Flexeril with minimal relief. Denies saddle paresthesia or urinary incontinence/retention. MD Complaint: back pain, back injury Onset/Timin -: days(s) Similar Symptoms Previously: No Place: home Radiation: left leg Severity scale (1-10): 9 Quality: burning Consistency: constant Improves With: immobilization Worsens With: movement, sitting upright, walking Context: bending Treatments Prior to Arrival: other medications (Flexeril) - Related Data Home Medications Medication Instructions Recorded Confirmed Pantoprazole [Protonix] 40 mg PO HS 02/22/18 05/27/24 Albuterol Sulfate [Albuterol 1 puff PO RT-Q6H PRN 02/10/21 05/27/24 Sulfate Hfa] Fluticasone Nasal [place] [Flonase 1 spray EA NOSTRIL DAILY PRN 02/10/21 05/27/24 Nasal [place]] Cetirizine HCl [Zyrtec] 10 mg PO DAILY 02/03/24 05/27/24 diphenhydrAMINE HCL [Benadryl] 100 mg PO DAILY 02/03/24 05/27/24 Previous Rx's Medication Instructions Recorded Tamsulosin [Flomax] 0.4 mg PO PC-SUPPER 30 Days #30 cap 02/06/24 Ibuprofen [Motrin] 800 mg PO Q8HR PRN #30 tab 06/21/24 Allergies Allergy/AdvReac Type Severity Reaction Status Date / Time quetiapine [From Seroquel] Allergy Swelling Verified 06/21/24 14:12 atorvastatin AdvReac Unknown Verified 06/21/24 14:12 wasp venom Allergy Anaphylaxis Uncoded 06/21/24 14:12 Review of Systems ROS Statement: Those systems with pertinent positive or pertinent negative responses have been documented in the HPI. ROS Other: All systems not noted in ROS Statement are negative. Past Medical History Past Medical History: Asthma Additional Past Medical History / Comment(s): RT femur fracture, PTSD, chronic pain, kidney surgery, KIDNEY STONES- History of Any Multi-Drug Resistant Organisms: None Reported Past Surgical History: Back Surgery, Joint Replacement, Orthopedic Surgery Additional Past Surgical History / Comment(s): cranial fracture, right ankle, right hand. LT HAILEY, CERVICAL FUSION, LITHOTRIPSY, EGD Past Anesthesia/Blood Transfusion Reactions: No Reported Reaction Additional Past Anesthesia/Blood Transfusion Reaction / Comment(s): CLAUSTROPHIC Past Psychological History: PTSD Smoking Status: Former smoker Past Alcohol Use History: None Reported Past Drug Use History: None Reported - Past Family History Father Family Medical History: Cancer Mother Family Medical History: Cancer General Exam Limitations: no limitations General appearance: alert, in no apparent distress Head exam: Present: atraumatic, normocephalic, normal inspection Eye exam: Present: normal appearance, PERRL, EOMI. Absent: scleral icterus, conjunctival injection, periorbital swelling ENT exam: Present: normal exam, mucous membranes moist Neck exam: Present: normal inspection. Absent: tenderness, meningismus, lymphadenopathy Respiratory exam: Present: normal lung sounds bilaterally. Absent: respiratory distress, wheezes, rales, rhonchi, stridor Cardiovascular Exam: Present: regular rate, normal rhythm, normal heart sounds. Absent: systolic murmur, diastolic murmur, rubs, gallop, clicks GI/Abdominal exam: Present: soft, normal bowel sounds. Absent: distended, tenderness, guarding, rebound, rigid Extremities exam: Present: normal inspection, full ROM, normal capillary refill. Absent: tenderness, pedal edema, joint swelling, calf tenderness Back exam: Present: normal inspection, paraspinal tenderness (Left paralumbar muscle spasm/tenderness), vertebral tenderness (L1 TTP without crepitus or step- off) Neurological exam: Present: alert, oriented X3, CN II-XII intact Psychiatric exam: Present: normal affect, normal mood Skin exam: Present: warm, dry, intact, normal color. Absent: rash Course Vital Signs 06/21/24 06/21/24 06/21/24 14:09 16:00 16:58 Temperature 97.2 F L 98 F 98 F Pulse Rate 104 H 74 76 Respiratory 22 18 18 Rate Blood Pressure 139/91 131/83 130/86 O2 Sat by Pulse 98 100 100 Oximetry Medical Decision Making - Medical Decision Making Was pt. sent in by a medical professional or institution (, SHELL, SPA DIRECTOR, urgent care, hospital, or group home...) When possible be specific @ -No Did you speak to anyone other than the patient for history (EMS, parent, family, police, friend...)? What history was obtained from this source @ -No Did you review nursing and triage notes (agree or disagree)? Why? @ -I reviewed and agree with nursing and triage notes Were old charts reviewed (outside hosp., previous admission, EMS record, old EKG, old radiological studies, urgent care reports/EKG's, group home records)? Report findings @ -No old charts were reviewed Differential Diagnosis (chest pain, altered mental status, abdominal pain women, abdominal pain men, vaginal bleeding, weakness, fever, dyspnea, syncope, headache, dizziness, GI bleed, back pain, seizure, CVA, palpatations, mental health, musculoskeletal)? @ -Differential Back Pain: Strain, zoster, cauda equina syndrome, epidural abscess, vertebral osteomyelitis, discitis, fracture, subluxation, disc herniation, DJD, spinal stenosis, dissection, AAA, pancreatitis, peptic ulcer disease, pyelonephritis, kidney stone, this is not meant to be an all-inclusive list. EKG interpreted by me (3pts min.). @ -Not done X-rays interpreted by me (1pt min.). @ -Thoracolumbar spine x-ray shows no acute process. CT interpreted by me (1pt min.). @ -None done U/S interpreted by me (1pt. min.). @ -None done What testing was considered but not performed or refused? (CT, X-rays, U/S, labs)? Why? @ -None What meds were considered but not given or refused? Why? @ -None Did you discuss the management of the patient with other professionals (professionals i.e. SHELL Crain, SPA DIRECTOR, lab, RT, psych nurse, social media developer, rope maker, teacher, correction officer head, case briefer)? Give summary @ -No Was smoking cessation discussed for >3mins.? @ -No Was critical care preformed (if so, how long)? @ -No Were there social determinants of health that impacted care today? How? (Homelessness, low income, unemployed, alcoholism, drug addiction, transportation, low edu. Level, literacy, decrease access to med. care, senior care, rehab)? @ -No Was there de-escalation of care discussed even if they declined (Discuss DNR or withdrawal of care, Hospice)? DNR status @ -No What co-morbidities impacted this encounter? (DM, HTN, Smoking, COPD, CAD, Cancer, CVA, ARF, Chemo, Hep., AIDS, mental health diagnosis, sleep apnea, morbid obesity)? @ -None Was patient admitted / discharged? Hospital course, mention meds given and route, prescriptions, significant lab abnormalities, going to OR and other per tinent info. @ -Thoracolumbar spine x-ray shows no acute process. Patient provided IV Toradol, Solu-Medrol and Norflex for pain with minimal relief. Patient then provided IV Dilaudid and Toradol with pain relief noted by patient. Motrin 800 sent to patient's pharmacy. Advised warm compresses and gentle massage of affected area. Discussed patient with Dr. Valenzuela. Undiagnosed new problem with uncertain prognosis? @ -No Drug Therapy requiring intensive monitoring for toxicity (Heparin, Nitro, Insulin, Cardizem)? @ -No Were any procedures done? @ -No Diagnosis/symptom? @ -Lumbar muscle strain with radiculopathy Acute, or Chronic, or Acute on Chronic? @ -Acute Uncomplicated (without systemic symptoms) or Complicated (systemic symptoms)? @ -Uncomplicated Side effects of treatment? @ -No Exacerbation, Progression, or Severe Exacerbation? @ -No Poses a threat to life or bodily function? How? (Chest pain, [place], [place], pneumonia, PE, COPD, DKA, ARF, appy, cholecystitis, CVA, Diverticulitis, Homicidal, Suicidal, threat to staff... and all critical care pts) @ -No Disposition Clinical Impression: Strain of lumbar region, Lumbar radiculopathy Disposition: HOME SELF-CARE Condition: Good Instructions (If sedation given, give patient instructions): Acute Low Back Pain (ED) Prescriptions: Ibuprofen [Motrin] 800 mg PO Q8HR PRN #30 tab PRN Reason: Pain Is patient prescribed a controlled substance at d/c from ED?: No Referrals: [facility],Clinic [Primary Care Provider] - 1-2 days Time of Disposition: 16:19
[2024-06-21] MEDS: KETOROLAC 15 MG/ML 1 ML VIAL IVP STA ×2 (15:06→16:11)
[2024-06-21] MEDS: ORPHENADRINE 30 MG/ML 2 ML VIAL IVP STA (15:07)
[2024-06-21] MEDS: methylPREDNISolone SOD SUCCI 125 MG/2 ML VIAL IV STA (15:08)
--- NOTE | 2024-06-21 15:35 | XR ---
EXAMINATION TYPE: XR thoraco lumbar junction DATE OF EXAM: 06/21/2024 3:27 PM INDICATION: Patient age:Male; 54 years old; Reason for study: L1 TTP, left-sided radiculopathy; PHH. pain COMPARISON: CT chest 05/24/2024, CT abdomen and pelvis 02/02/2024 TECHNIQUE: AP and lateral views of the thoracolumbar junction were obtained. FINDINGS: Overlying bowel gas limits evaluation. No evidence of any acute osseous pathology. No spond ylolisthesis. Mild dextrocurvature identified. No evidence of loss of vertebral body height is seen. IMPRESSION: No acute process. Consider further evaluation with CT if there is continued clinical concern. [facility], , 06/21/2024 3:32 PM
[2024-06-21 16:04] VITALS: RESP 18; TEMP 98
[2024-06-21] MEDS: HYDROmorphone 1 MG/ML 1 ML SYRINGE IVP STA (16:10)
[2024-06-21 17:00] VITALS: BP 130/86; PULSE 76
== END 2024-06-21 17:00 | disposition home or self-care (01) ==
LOC: EC 14:09
DX: S39.012A Strain of muscle, fascia and tendon of lower back, initial encounter (principal); M54.16 Radiculopathy, lumbar region; Z87.891 Personal history of nicotine dependence; Z91.038 Other insect allergy status; Z88.8 Allergy status to other drugs, medicaments and biological substances; X58.XXXA Exposure to other specified factors, initial encounter
CPT/HCPCS: 72080; 99283; 96374; 96375; 96376; J2360; J1171; J1885; J2919

== ENCOUNTER → 2024-08-14 | Outpatient (CLI) | payer BC, MEDICARE ==
--- NOTE | 2024-08-14 11:31 | MR ---
EXAMINATION TYPE: MR shoulder RT wo con DATE OF EXAM: 08/14/2024 10:37 AM COMPARISON: 06/17/2024. CLINICAL INDICATION: Male, 54 years old with history of M25.511 PAIN IN RIGHT SHOULDER; [facility], TECHNIQUE: Multi planar, multi sequence imaging was performed of the shoulder including: Axial and coronal caridad n density fat-saturated sequences, T2 fat-saturated sagittal sequence, and T1-weighted imaging. No G adolinium was given. FINDINGS: Supraspinatus tendon: Mild increased signal near its insertion. No full-thickness tear definitive ly visualized. Infraspinatus tendon: Anterior fibers, Increased PD signal with articular surface tear measuring 6 x 6 mm near its origin to insertion. Subscapularis tendon: Articular surface tear near its insertion measuring 3 x 6 cm. Teres minor tendon: Intact Long head biceps tendon: Intact, mild increased PD signal is extends on the arm with surrounding fluid possible longitudinal tear of the tendon series 301 image 6. Is positioned within the bicipital groove. Normal insertion at the bicipital anchor. Acromioclavicular joint: Mild osteoarthrosis. Undersurface spurring impinging on the supraspinat us tendon. No effusion. Glenohumeral joint: Mild osteoarthrosis. Cartilage thinning along the humeral head and glenoid.. No effusion. Glenoid labrum: Degenerative labrum with inferior labral tear posteriorly series 301 image 8 and anteriorly series 301 image 16. Muscle volume: Normal. Bone marrow: Normal. Soft tissues: Unremarkable. Joint/bursal fluid: Trace fluid in the subacromial bursa IMPRESSION: 1. Partial-thickness tear of the infraspinatus anterior fibers near its insertion as well as the sub scapularis tendon near its insertion. Trace fluid in the subacromial bursa suggesting an occult full- thickness tear. Degenerative labrum with suspected posterior inferior and anterior labral tears. 2. Supraspinous tendinosis. 3. Long head biceps tenosynovitis with possible longitudinal tear of the tendon suggested. [facility], , 08/14/2024 11:29 AM
== END | disposition home or self-care (01) ==
LOC: RADMRIMAIN 10:00
PROVIDERS: ATTEND Orthopaedic Surgery
DX: M19.011 Primary osteoarthritis, right shoulder (principal); M67.813 Other specified disorders of tendon, right shoulder; M65.811 Other synovitis and tenosynovitis, right shoulder

== ENCOUNTER → 2024-08-20 | Outpatient (CLI) | payer BC, MEDICARE ==
[2024-08-20 17:08] LABS: Basophils # (A) 0.05 X 10*3/uL (0.00-0.10); Basophils % (A) 0.7 %; Eosinophils # (A) 0.11 X 10*3/uL (0.04-0.35); Eosinophils % (A) 1.6 %; HCT 49.9 % (39.6-50.0); HGB 16.7 g/dL (13.0-17.0); Lymphocytes # (A) 2.33 X 10*3/uL (0.90-5.00); Lymphocytes % (A) 33.6 %; MCH 31.3 pg (27.0-32.0); MCHC 33.5 g/dL (32.0-37.0); MCV 93.4 FL (80.0-97.0); Monocytes % (A) 8.7 %; NRBC Per 100 WBC 0 X 10*3/uL (0.00-0.01); Neutrophils # (A) 3.79 X 10*3/uL (1.80-7.70); Neutrophils % (A) 54.7 %; Platelet Count 273 X 10*3/uL (140-440); RBC 5.34 X 10*6/uL (4.40-5.60); RDW 12.8 % (11.5-14.5); WBC 6.93 X 10*3/uL (4.50-10.00)
[2024-08-20 18:04] LABS: Anion Gap 12.8 mmol/L (4.00-12.00); Carbon Dioxide 22.2 mmol/L (21.6-31.8); Potassium 4.6 mmol/L (3.5-5.5)
== END | disposition home or self-care (01) ==
LOC: LABPAT 11:14
PROVIDERS: ATTEND Orthopaedic Surgery
DX: Z01.812 Encounter for preprocedural laboratory examination (principal); M75.41 Impingement syndrome of right shoulder
CPT/HCPCS: 80051; 85025; 93005

== ENCOUNTER 2024-08-23 15:16 | Emergency (ER) | payer BC, MEDICARE ==
--- NOTE | 2024-08-23 15:37 | ED ---
Fall HPI - General Chief Complaint: Fall Stated Complaint: right hip pain Time Seen by Provider: 08/23/24 15:28 Source: patient, RN notes reviewed Mode of arrival: wheelchair - History of Present Illness Initial Comments: This is a 54-year-old male presenting to emergency department for complaint of a fall. Patient notes that he was walking downstairs when he was hit by a dog c ausing him to fall down 5 stairs landing on his outstretched left foot causing pain to his right hip. Patient denies falling or hitting his right hip however is complaining of pain after the injury. He denies hitting his head or loss conscious. Patient states that he has been having a difficult time bearing weight on his right hip. Patient does have a history of a total hip replacement. Denies lumbar back pain, loss of bladder bowel continence, saddle anesthesias. No other acute complaints this time. - Related Data Home Medications Medication Instructions Recorded Confirmed Pantoprazole [Protonix] 40 mg PO HS 02/22/18 05/27/24 Albuterol Sulfate [Albuterol 1 puff PO RT-Q6H PRN 02/10/21 05/27/24 Sulfate Hfa] Fluticasone Nasal [place] [Flonase 1 spray EA NOSTRIL DAILY PRN 02/10/21 05/27/24 Nasal [place]] Cetirizine HCl [Zyrtec] 10 mg PO DAILY 02/03/24 05/27/24 diphenhydrAMINE HCL [Benadryl] 100 mg PO DAILY 02/03/24 05/27/24 Previous Rx's Medication Instructions Recorded Tamsulosin [Flomax] 0.4 mg PO PC-SUPPER 30 Days #30 cap 02/06/24 Ibuprofen [Motrin] 800 mg PO Q8HR PRN #30 tab 06/21/24 Allergies Allergy/AdvReac Type Severity Reaction Status Date / Time quetiapine [From Seroquel] Allergy Swelling Verified 08/23/24 15:23 atorvastatin AdvReac Unknown Verified 08/23/24 15:23 wasp venom Allergy Anaphylaxis Uncoded 08/23/24 15:23 Review of Systems ROS Statement: Those systems with pertinent positive or pertinent negative responses have been documented in the HPI. ROS Other: All systems not noted in ROS Statement are negative. Past Medical History Past Medical History: Asthma Additional Past Medical History / Comment(s): RT femur fracture, PTSD, chronic pain, kidney surgery, KIDNEY STONES- History of Any Multi-Drug Resistant Organisms: None Reported Past Surgical History: Back Surgery, Joint Replacement, Orthopedic Surgery Additional Past Surgical History / Comment(s): cranial fracture, right ankle, right hand. LT HAILEY, CERVICAL FUSION, LITHOTRIPSY, EGD Past Anesthesia/Blood Transfusion Reactions: No Reported Reaction Additional Past Anesthesia/Blood Transfusion Reaction / Comment(s): CLAUSTROPHIC Past Psychological History: PTSD Smoking Status: Former smoker Past Alcohol Use History: None Reported Past Drug Use History: None Reported - Past Family History Father Family Medical History: Cancer Mother Family Medical History: Cancer General Exam Limitations: no limitations General appearance: alert, in no apparent distress Neck exam: Present: normal inspection. Absent: tenderness, meningismus, lymphadenopathy Respiratory exam: Present: normal lung sounds bilaterally. Absent: respiratory distress, wheezes, rales, rhonchi, stridor Cardiovascular Exam: Present: regular rate, normal rhythm, normal heart sounds. Absent: systolic murmur, diastolic murmur, rubs, gallop, clicks GI/Abdominal exam: Present: soft, normal bowel sounds. Absent: distended, tenderness, guarding, rebound, rigid Right Hip exam: Present: normal inspection, tenderness. Absent: full ROM, deformity, crepitus, dislocation, external rotation, internal rotation, shortening Neurovascular tendon exam: Present: no vascular compromise Back exam: Present: normal inspection Course Vital Signs 08/23/24 15:19 Temperature 98.6 F Pulse Rate 79 Respiratory 17 Rate Blood Pressure 142/89 O2 Sat by Pulse 99 Oximetry Medical Decision Making - Medical Decision Making Was pt. sent in by a medical professional or institution (, PA, IMMIGRATION ATTORNEY, urgent care, hospital, or fci...) When possible be specific @ -No Did you speak to anyone other than the patient for history (EMS, parent, family, police, friend...)? What history was obtained from this source @ -No Did you review nursing and triage notes (agree or disagree)? Why? @ -I reviewed and agree with nursing and triage notes Were old charts reviewed (outside hosp., previous admission, EMS record, old EKG, old radiological studies, urgent care reports/EKG's, fci records)? Report findings @ -No old charts were reviewed Differential Diagnosis (chest pain, altered mental status, abdominal pain women, abdominal pain men, vaginal bleeding, weakness, fever, dyspnea, syncope, headache, dizziness, GI bleed, back pain, seizure, CVA, palpatations, mental health, musculoskeletal)? @ -Differential Musculoskeletal Muscular strain, contusion, ligament sprain, fracture, arthritis, septic arthritis, bursitis, cellulitis, muscle spasm, nerve compression, DVT, arterial occlusion, herpes zoster, electrolyte abnormality, tumor.... This is not meant to be in all inclusive list EKG interpreted by me (3pts min.). @ -none X-rays interpreted by me (1pt min.). @ -X-ray of bilateral hips and AP pelvis no acute fracture or dislocation CT interpreted by me (1pt min.). @ -None done U/S interpreted by me (1pt. min.). @ -None done What testing was considered but not performed or refused? (CT, X-rays, U/S, labs)? Why? @ -None What meds were considered but not given or refused? Why? @ -None Did you discuss the management of the patient with other professionals (professionals i.e. , PA, IMMIGRATION ATTORNEY, lab, RT, psych nurse, licensed clinical social worker, service coordinator, teacher, aviation ordnance officer, nurse case manager)? Give summary @ -No Was smoking cessation discussed for >3mins.? @ -No Was critical care preformed (if so, how long)? @ -No Were there social determinants of health that impacted care today? How? (Homelessness, low income, unemployed, alcoholism, drug addiction, transportation, low edu. Level, literacy, decrease access to med. care, halfway, rehab)? @ -No Was there de-escalation of care discussed even if they declined (Discuss DNR or withdrawal of care, Hospice)? DNR status @ -No What co-morbidities impacted this encounter? (DM, HTN, Smoking, COPD, CAD, Cancer, CVA, ARF, Chemo, Hep., AIDS, mental health diagnosis, sleep apnea, morbid obesity)? @ -None Was patient admitted / discharged? Hospital course, mention meds given and route, prescriptions, significant lab abnormalities, going to OR and other pertinent info. @ -Discharge. 54-year-old male presenting with right hip pain. There is no evidence of pelvic instability or internal or external rotation or leg shortening. In spite of dose of pain medication. X-ray bilateral hips and AP pelvis no abnormality. He is better with starter pack and Tylenol 3 instructed follow-up with primary care provider and art therapy specialist outpatient. Case discussed with Dr. Hagen Undiagnosed new problem with uncertain prognosis? @ -No Drug Therapy requiring intensive monitoring for toxicity (Heparin, Nitro, Insulin, Cardizem)? @ -No Were any procedures done? @ -No Diagnosis/symptom? @ -Fall, hip pain Acute, or Chronic, or Acute on Chronic? @ -Acute Uncomplicated (without systemic symptoms) or Complicated (systemic symptoms)? @ -Uncomplicated Side effects of treatment? @ -No Exacerbation, Progression, or Severe Exacerbation? @ -No Poses a threat to life or bodily function? How? (Chest pain, [place], [place], pneumonia, PE, COPD, DKA, ARF, appy, cholecystitis, CVA, Diverticulitis, Homicidal, Suicidal, threat to staff... and all critical care pts) @ -No Disposition Clinical Impression: Fall, Right hip pain Disposition: HOME SELF-CARE Condition: Good Instructions (If sedation given, give patient instructions): Hip Pain (ED) Additional Instructions: Please return to the Emergency Department if symptoms worsen or any other concerns. Is patient prescribed a controlled substance at d/c from ED?: No Referrals: Tunde Millan DO [Primary Care Provider] - 1-2 days Time of Disposition: 16:27
[2024-08-23] MEDS: HYDROmorphone 1 MG/ML 1 ML SYRINGE IM STA (15:46)
--- NOTE | 2024-08-23 16:14 | XR ---
EXAMINATION TYPE: XR Hip Bilateral and AP pelvis DATE OF EXAM: 08/23/2024 COMPARISON: CT abdomen and pelvis February 02, 2024 CLINICAL INDICATION: Male, 54 years old with history of fall, r and l hip pain, hx replacement(s); TECHNIQUE: A single AP view of the pelvis is obtained. Two views of the bilateral hips are obtained. FINDINGS: There is no acute fracture/dislocation evident in the pelvis or either hip. Metallic artif act bilateral hip arthroplasty is redemonstrated. Hardware position is stable and satisfactory. Heter otopic ossification is seen bilaterally greater in the left hip versus right hip. IMPRESSION: There is no acute fracture or dislocation in the pelvis or either hip. [facility], , 08/23/2024 4:12 PM
[2024-08-23] MEDS: ACET/COD 300 MG/30 MG STARTER PACK 6 TAB BTL PO STA (17:08)
[2024-08-23 17:23] VITALS: BP 115/67; PULSE 75; RESP 16; TEMP 98.2
== END 2024-08-23 17:30 | disposition home or self-care (01) ==
LOC: EC 15:16
DX: M25.551 Pain in right hip (principal); Z87.891 Personal history of nicotine dependence; Z91.038 Other insect allergy status; Z88.8 Allergy status to other drugs, medicaments and biological substances; W10.9XXA Fall (on) (from) unspecified stairs and steps, initial encounter; Y93.01 Activity, walking, marching and hiking
CPT/HCPCS: 73521; 99283; 96372; J1171

== ENCOUNTER 2024-09-11 06:54 | Day surgery (SDC) | payer BC, MEDICARE ==
[2024-09-09 11:18] VITALS: BMI 26.3
--- NOTE | 2024-09-10 13:54 | HP ---
HISTORY AND PHYSICAL DATE OF SURGERY: 09/11/2024. HISTORY OF PRESENT ILLNESS: Kip Damon is a 54-year-old gentleman, seen with progressive right shoulder pain. After having options for treatment discussed, he elected to proceed with right shoulder arthroscopy. Consent was obtained. PAST MEDICAL HISTORY: Asthma. PAST SURGICAL HISTORY: Total hip arthroplasty. DAILY MEDICATIONS: 1. Albuterol inhaler. 2. Gabapentin. 3. Zyrtec. 4. Vitamins. ALLERGIES: Atorvastatin, hydrocortisone, Seroquel. SOCIAL HISTORY: Denies tobacco use. PHYSICAL EVALUATION OF THE RIGHT SHOULDER: Flexion is 70 degrees, abduction 70 degrees. External rotation is 10 degrees with pain and weakness. Tenderness, anterolateral acromion, acromioclavicular joint, and bicipital groove along with rotator cuff tendon. Impingement is positive at 70 degrees. Cross-body adduction sign is positive. Drop-arm sign is positive. Distal neurovascular exam is intact. IMAGING STUDIES: Radiographs of the right shoulder revealed a type 2 acromion, acromioclavicular joint osteoarthritis. MRI of right shoulder revealed rotator cuff tendon tear, partial biceps tendon tear, and labral tear. IMPRESSION: 1. Right shoulder impingement with rotator cuff tear. 2. Right shoulder acromioclavicular joint osteoarthritis. 3. Right shoulder partial long head biceps tendon tear. 4. Right shoulder labral tear. PLAN: Right shoulder arthroscopy with subacromial decompression, rotator cuff repair, Ronna procedure, biceps tenodesis, and debridement of labral tear. MMODL / IJN: [id number] /
[2024-09-11] MEDS ORDERED: HYDROmorphone 0.5 MG/0.5 ML SYRINGE IVP PRN (07:00)
[2024-09-11] MEDS: IV FLUID CONTINUATION 1,000 ML IV ONE (07:12)
[2024-09-11] MEDS: LACTATED RINGERS 1,000 ML IV SCH (07:45)
[2024-09-11] MEDS: ONDANSETRON 4 MG/2 ML VIAL IVP ONE (07:46)
[2024-09-11] MEDS: MIDAZOLAM 2 MG/2 ML VIAL IV ONE (07:51)
--- NOTE | 2024-09-11 08:01 | P.ANPRN ---
Procedure Note - Anesthesia - Nerve Block Performed Right Interscalene Single Time Out Performed: Yes ([id number]) Date of Procedure: 09/11/24 Procedure Start Time: 07:54 Procedure Stop Time: 07:59 Location of Patient: PreOp Indication: Acute Post-Operative Pain, Requested by Surgeon Sedation Type: Sedate with meaningful contact maintained Preparation: Sterile Prep Position: Sitting Catheter: None Needle Types: Pajunk Needle Gauge: Other (see comment) (22g-5cm) Ultrasound used to visualize needle placement: Yes Ultrasound used to observe medication spread: Yes Injectate: 0.5% Ropivacaine (see comment for volume) (21 mL of block solution containing 20 mL of 0.5% ropivacaine mixed with 4 mg of dexamethasone) Narrative: 1 attempt Blood Aspirated: No Pain Paresthesia on Injection Noted: No Resistance on Injection: Normal Image Stored and Saved: Yes Events: Uneventful and Well Tolerated
[2024-09-11] MEDS: DEXAMETHASONE SOD PHOSPHATE 4 MG/ML 1 ML VIAL IVP STA (08:05)
[2024-09-11] MEDS ORDERED: KETAMINE HCL IN 0.9 % NACL 50 MG/5 ML SYRINGE ONE (08:20)
[2024-09-11] MEDS ORDERED: LIDOCAINE 1% INJ 10MG/ML (20 ML MDV) ONE (08:20)
[2024-09-11] MEDS ORDERED: PROPOFOL 10 MG/ML 20 ML VIAL IV ONE (08:20)
[2024-09-11] MEDS ORDERED: MIDAZOLAM 2 MG/2 ML VIAL ONE (08:20)
[2024-09-11] MEDS ORDERED: fentaNYL (PF) 50 MCG/ML 2 ML AMP ONE (08:20)
[2024-09-11] MEDS ORDERED: DEXAMETHASONE SOD PHOSPHATE 4 MG/ML 1 ML VIAL ONE (08:20)
[2024-09-11] MEDS ORDERED: ROPIVACAINE 5 MG/ML 30 ML VIAL ONE (08:20)
[2024-09-11] MEDS ORDERED: SUCCINYLCHOLINE CHLORIDE 200 MG/10 ML VIAL IV ONE (08:20)
[2024-09-11] MEDS: ceFAZolin 2 GM in DEXTROSE 5% IN WATER 50 ML IVPB PRN (08:24)
[2024-09-11 10:06] VITALS: TEMP 97
--- NOTE | 2024-09-11 10:17 | P.OP ---
Date of Procedure: 09/11/24 Preoperative Diagnosis: Right shoulder impingement Postoperative Diagnosis: 1. Right shoulder rotator cuff tear 2. Right shoulder impingement 3. Right shoulder bicipital tendinitis Procedure(s) Performed: 1. Right shoulder arthroscopic rotator cuff repair 2. Right shoulder arthroscopic subacromial decompression 3. Right shoulder arthroscopic biceps tenodesis Implants: 2Arthrex 4.75 swivel lock anchors Anesthesia: GETA, regional (Interscalene block) Surgeon: Jamal Delarosa Boss Dyer #1: Cricket Romo Estimated Blood Loss (ml): 7 Pathology: none sent Condition: stable Disposition: PACU Indications for Procedure: 54-year-old patient seen with progressive right shoulder pain. After having treatment options discussed, he elected to proceed with arthroscopy. Operative Findings: See description of procedure Description of Procedure: Patient underwent an interscalene block by department of anesthesia. The patient was then taken to the operative suite. The patient underwent a general anesthetic by the department of anesthesia. The patient was placed into a lateral position and secured. There was appropriate padding of the bony prominence. Right shoulder was then prepped and draped in normal sterile orthopedic fashion. We placed the extremity in 10 pounds of longitudinal traction. A posterior incision was now made for a posterior working portal site. The trocar and cannula were inserted into the glenohumeral joint. Arthroscopy was initiated. Spinal needle was now inserted anteriorly, to ascertain the anterior working portal site. An incision was now made in that area, a trocar was inserted followed by a probe. There was hyperemia involving long head biceps tendon. The labrum was probed and was found to be stable. There was no significant chondromalacia present. I introduced the cannula through the anterior portal site. I passed a loop and tack type stitch to the biceps tendon and then released it from the superior labral anchor. With the assistance of [place]arro GOFF partial at the interval for insertion of an anchor. The suture line was not passed through the eyelet of an Arthrex 4.75 swivel lock anchor. I placed the eyelet into the prepunched a hole and held it in position while Navarro GOFF tensioned the suture and deployed the anchor with good fixation noted. The residual suture limb was now clipped. We had a stable appearing biceps tenodesis. Instruments were now removed from the glenohumeral joint. Utilizing the posterior working portal site, the trocar and cannula were inserted into the subacromial space. Arthroscopy initiated. I made an incision 2 fingerbreadths lateral to the acromion. I introduced my trocar followed by my ArthroCare ablator. I now began ablating thick subacromial bursal tissue, which exposed the undersurface of the anterior acromion. There was diminished subacromial space. There was a very prominent anterior acromion. A motorized bur was introduced and a subacromial decompression was performed. I also excised some osteophytes off the inferior aspect of the distal clavicle. The AC joint was visualized and noted to be moderately arthritic, I did not think enough to warrant a Ronna procedure. I now turned my attention to the rotator cuff tendon. Upon probing the distal supraspinatus area noted a full-thickness perforation. I now introduced a motorized shaver and debrided the margins getting down to stable tendon tissue. I abraded the footprint with a motorized bur. The defect/tear measured about 1.5 cm and was freely mobile over the footprint. I passed 3 everted mattress sutures through good bites of rotator cuff tendon with the assistance of Navarro GOFF. I now punched a hole at the footprint area for insertion of an anchor. All 6 limbs of suture were passed through the eyelet of an Arthrex 4.75 swivel lock anchor. I placed the anchor into the prepunched hole and held in position while Navarro GOFF tensioned all the sutures and deployed the anchor with good fixation noted. All residual suture limbs were now clipped. We had good compression of the tendon along the entire footprint. Instruments now removed from the portal sites. All portal sites were approximated with nylon suture. Sterile dressings were applied followed by a shoulder sling. Cricket GOFF assisted in all aspects of this case. The patient was awakened, transferred to a bed, and taken to recovery in stable condition.
[2024-09-11 10:18] VITALS: RESP 16
[2024-09-11 11:16] VITALS: BP 117/79; PULSE 75
== END 2024-09-11 11:46 | disposition home or self-care (01) ==
LOC: OR 06:54
PROVIDERS: ATTEND Orthopaedic Surgery
DX: M75.101 Unspecified rotator cuff tear or rupture of right shoulder, not specified as traumatic (principal); M75.21 Bicipital tendinitis, right shoulder; M25.811 Other specified joint disorders, right shoulder; G89.18 Other acute postprocedural pain; J45.909 Unspecified asthma, uncomplicated; M19.011 Primary osteoarthritis, right shoulder
CPT/HCPCS: 64415; 29824; 29826; 29827; 29828; C1713 ×3; J2250; J0330; J1100; J0690; J2405; J2003; J3010; J2795; J2704